=== PATIENT | male | born 1960 | race Caucasian/White ===

== ENCOUNTER → 2018-01-02 | Outpatient (CLI) | payer OTHER ==
[2018-01-02 11:39] LABS: HCT 48.6 % (39.0-53.0); HGB 16.5 gm/dL (13.0-17.5); MCH 31.5 pg (25.0-35.0); MCHC 33.9 g/dL (31.0-37.0); MCV 92.8 fL (80.0-100.0); Mean Platelet Volume 7.9; Platelet Count 179 k/uL (150-450); RBC 5.24 m/uL (4.30-5.90); RDW 12.3 % (11.5-15.5); WBC 6.4 k/uL (3.8-10.6)
[2018-01-02 12:07] LABS: Anion Gap 13 mmol/L; Blood Urea Nitrogen 8 mg/dL (9-20); Carbon Dioxide 29 mmol/L (22-30); Chloride 103 mmol/L (98-107); Potassium 4.7 mmol/L (3.5-5.1); Sodium 145 mmol/L (137-145)
== END | disposition home or self-care (01) ==
LOC: LABPAT 11:01
PROVIDERS: ATTEND Internal Medicine Interventional Cardiology
DX: Z01.812 Encounter for preprocedural laboratory examination (principal); R07.9 Chest pain, unspecified
CPT/HCPCS: 36415; 80051; 82565; 84520; 85027

== ENCOUNTER → 2018-01-06 | Day surgery (SDC) | payer OTHER ==
[2018-01-01 09:29] VITALS: BMI 25.7
[~2018-01-06] MED LIST: ALPRAZolam 0.25 MG TAB PO PRN; ALPRAZolam 0.5 MG TAB PO PRN; ASPIRIN 325 MG TAB PO STA; ASPIRIN 81 MG PO SCH; ATORVASTATIN 20 MG TAB PO SCH; ATORVASTATIN 80 MG TAB PO STA; HEPARIN SODIUM 1,000 UN/ML (10ML VL) ONE; IOPAMIDOL-370 125ML BTL INJ ONE; LIDOCAINE 2% INJ 20 MG/ML (20 ML MDV) ONE; LIDOCAINE 2% INJ 20 MG/ML SQ ONE; LISINOPRIL 20 MG TAB PO SCH; MIDAZOLAM 2 MG/2 ML VIAL IV ONE; MIDAZOLAM 2 MG/2 ML VIAL ONE; NITROGLYCERIN SL TABS 0.4 MG TAB SUBLINGUAL PRN; RX INFO: IV CONTRAST WAS GIVEN 1 EACH MISC MISCELLANE PRN; SODIUM CHLORIDE 0.9% 1,000 ML IV SCH; SODIUM CHLORIDE 0.9% 1,000 ML in EMPTY BAG 1 BAG IV ONE; VERAPAMIL 2.5 MG/ML 2 ML AMP ONE; diphenhydrAMINE 50 MG/ML 1 ML VIAL IVP ONE; diphenhydrAMINE 50 MG/ML 1 ML VIAL ONE; fentaNYL (PF) 50 MCG/ML 2 ML AMP IV ONE; fentaNYL (PF) 50 MCG/ML 2 ML AMP ONE
[2018-01-06 06:47] VITALS: TEMP 98
[2018-01-06] MEDS: VERAPAMIL SYRINGE (5 MG/10 ML) INTRAARTER ONE ×2 (07:47→07:56)
--- NOTE | 2018-01-06 08:38 | CC ---
CARDIAC CATHETERIZATION REPORT Mr. Strickland is a 57-year-old male with known history of hypertension, hyperlipidemia, history of smoking, who recently has been complaining of symptoms of dyspnea and episodes of chest discomfort, underwent a myocardial perfusion imaging that revealed apical ischemia. In view of that, recommendation was made regarding cardiac catheterization. The procedure as well as the risks and the complications were discussed with the patient who is in full understanding and agreement. PROCEDURE: Patient was brought to cath lab nurse in a fasting semi-sedated state after receiving fentanyl and Benadryl and achieving moderate conscious sedated state. Using Xylocaine anesthesia in the Seldinger technique, a 6-Rwandan sheath was introduced in the right radial artery. Selective right and left coronary angiography performed using 5-Rwandan 3.5 bend right and left Vitaly catheter. Multiple view of the coronary artery including hemiaxial views were obtained. Following that, catheter and sheaths were removed. Hemostasis was obtained with deployment of a TR band. There was no immediate complication. The patient was returned to his room in a stable condition. Of note, the patient had received 4500 units of intravenous heparin as well as intra-arterial verapamil. FINDINGS: LEFT MAIN: This is a large-sized vessel, bifurcating in the left circumflex, left anterior descending artery. Left main coronary artery is without any significant obstructive disease. LEFT ANTERIOR DESCENDING ARTERY: This is a large-sized vessel. It tapers down in distal third, giving rise to a moderately sized diagonal branch in mid segment. The left anterior descending artery and its branches have no evidence of obstructive coronary artery disease LEFT CIRCUMFLEX: This is a nondominant vessel giving rise to 2 obtuse marginal branches. The first one is very proximal almost in the ramus intermedius territory. The left circumflex as well as branches have no evidence of obstructive coronary artery disease. RIGHT CORONARY ARTERY: This is a large dominant vessel bifurcating in PDA and posterolateral segment and branches. The PDA reaches towards the inferoapical wall. The right coronary artery as well as branches have no evidence of obstructive coronary artery disease LEFT VENTRICULOGRAM: Left ventriculogram is not performed. FINDINGS: Normal coronary arteries. RECOMMENDATION: In view of finding anatomy, I recommend to continue medical therapy with aggressive coronary risk modification that has been initiated. Those findings and recommendations were discussed with the patient and his family and they are in full understanding and agreement. Duration of the procedure is 13 minutes. MMODL / IJN: [id number] /
--- NOTE | 2018-01-06 08:44 | LTR ---
January 06, 2018 Re: Lc Strickland Dear Dr. Gant: I had the opportunity to perform cardiac catheterization on Mr. Strickland at [facility] on the 06 of January and a full copy of the procedure note, will be forwarded to you. In brief, he was found to have no evidence of obstructive coronary artery disease and based on those findings, I recommend to continue medical therapy with aggressive coronary risk modification that has been initiated. Thank you again for allowing me the opportunity to participate in his care. Please feel free to call for any questions. Sincerely yours, Gina Brandt. MD [place] / [place]: [id number] /
[2018-01-06 10:12] VITALS: BP 138/80; PULSE 70; RESP 18
== END | disposition home or self-care (01) ==
LOC: CATHCVL 06:19
PROVIDERS: ATTEND Internal Medicine Interventional Cardiology
DX: R94.39 Abnormal result of other cardiovascular function study (principal); R07.89 Other chest pain; R06.00 Dyspnea, unspecified; I10 Essential (primary) hypertension; E78.2 Mixed hyperlipidemia; F17.290 Nicotine dependence, other tobacco product, uncomplicated; Z79.82 Long term (current) use of aspirin; Z79.899 Other long term (current) drug therapy
CPT/HCPCS: 93454; C1769 ×2; C1894; J2001; J2250; J1200; J3010; J1644; Q9967

== ENCOUNTER 2020-09-11 09:34 | Emergency (ER) | payer OTHER ==
[2020-09-11 09:40] VITALS: RESP 18; TEMP 98.8
[2020-09-11] MEDS ORDERED: hydrALAZINE HCL 20 MG/ML 1 ML VIAL IVP STA (09:49)
--- NOTE | 2020-09-11 09:51 | ED ---
General Adult HPI - General Chief complaint: Recheck/Abnormal Lab/Rx Stated complaint: High BP Time Seen by Provider: 09/11/20 09:35 Source: patient, family, RN notes reviewed, old records reviewed Mode of arrival: ambulatory Limitations: no limitations - History of Present Illness Initial comments: This is a 60-year-old male who presents to the emergency department because he went for a initial evaluation with the physician and his blood pressure was elevated so they sent to the emergency department. Patient's states she is a smoker and now only smokes a pipe. Patient states she used to be at high blood pressure medication but hasn't taken it in quite a while. Patient states he has had no symptoms at all. Patient denies chest pain or palpitations. Patient denies difficulty breathing shortness of breath. Patient denies headache patient denies numbness weakness. Patient denies abdominal pain patient denies nausea vomiting diarrhea. Patient denies any lightheadedness or dizziness. Patient denies blurred vision. - Related Data Home Medications Medication Instructions Recorded Confirmed Aspirin [Adult Low Dose Aspirin EC] 81 mg PO DAILY 01/01/18 09/11/20 Multivitamins, Thera [Multivitamin 1 tab PO DAILY 09/11/20 09/11/20 (formulary)] Omeprazole Magnesium [PriLOSEC OTC] 20 mg PO DAILY 09/11/20 09/11/20 Previous Rx's Medication Instructions Recorded amLODIPine [Norvasc] 5 mg PO DAILY #10 tab 09/11/20 Allergies Allergy/AdvReac Type Severity Reaction Status Date / Time No Known Allergies Allergy Verified 09/11/20 10:52 Review of Systems ROS Statement: Those systems with pertinent positive or pertinent negative responses have been documented in the HPI. ROS Other: All systems not noted in ROS Statement are negative. Past Medical History Past Medical History: Chest Pain / Angina, COPD, GERD/Reflux, Hyperlipidemia, Hypertension Additional Past Medical History / Comment(s): irregular heart rate, heart murmur History of Any Multi-Drug Resistant Organisms: None Reported Past Surgical History: Heart Catheterization, Orthopedic Surgery Additional Past Surgical History / Comment(s): harpreet knees ACL repair Past Anesthesia/Blood Transfusion Reactions: No Reported Reaction Past Psychological History: Anxiety Smoking Status: Current every day smoker Past Alcohol Use History: Occasional Past Drug Use History: None Reported - Past Family History Brother(s) Additional Family Medical History / Comment(s): 2 brothers with aortic aneurysm, 1 with brain cancer Mother Family Medical History: Cancer Additional Family Medical History / Comment(s): lung cancer General Exam - General Exam Comments Initial Comments: GENERAL: Patient is well-developed and well-nourished. Patient is nontoxic and well-hy drated and is in mild distress. ENT: Neck is soft and supple. No significant lymphadenopathy is noted. Oropharynx is clear. Moist mucous membranes. Neck has full range of motion without eliciting any pain. EYES: The sclera were anicteric and conjunctiva were pink and moist. Extraocular move ments were intact and pupils were equal round and reactive to light. Eyelids were unremarkable. PULMONARY: Unlabored respirations. Good breath sounds bilaterally. No audible rales rhonchi or wheezing was noted. CARDIOVASCULAR: There is a regular rate and rhythm without any murmurs gallops or rubs. ABDOMEN: Soft and nontender with normal bowel sounds. SKIN: Skin is clear with no lesions or rashes and otherwise unremarkable. NEUROLOGIC: Patient is alert and oriented x3. Cranial nerves II through XII are grossly intact. Motor and sensory are also intact. Normal speech, volume and content. Symmetrical smile. MUSCULOSKELETAL: Normal extremities with adequate strength and full range of motion. LYMPHATICS: No significant lymphadenopathy is noted PSYCHIATRIC: Normal psychiatric evaluation. Limitations: no limitations Course Vital Signs 09/11/20 09/11/20 09/11/20 09:36 10:31 11:00 Temperature 98.8 F Pulse Rate 94 107 H 105 H Respiratory 18 18 18 Rate Blood Pressure 201/102 190/97 169/82 O2 Sat by Pulse 99 100 100 Oximetry Medical Decision Making - Medical Decision Making EKG shows sinus tachycardia at 102 bpm MI interval is 126 QRS is 118 QT interval 372 QTC is 484. Patient's EKG shows no ST segment elevation or depression. Patient received hydralazine 20 mg blood pressure down nicely. Patient remained asymptomatic throughout his stay. - Lab Data Result diagrams: 09/11/20 10:10 09/11/20 10:10 Lab Results 09/11/20 09/11/20 Range/Units 10:10 10:10 WBC 7.1 (3.8-10.6) k/uL RBC 4.82 (4.30-5.90) m/uL Hgb 15.7 (13.0-17.5) gm/dL Hct 47.3 (39.0-53.0) % MCV 98.2 (80.0-100.0) fL MCH 32.5 (25.0-35.0) pg MCHC 33.1 (31.0-37.0) g/dL RDW 12.4 (11.5-15.5) % Plt Count 187 (150-450) k/uL MPV 7.6 Neutrophils % 62 % Lymphocytes % 27 % Monocytes % 5 % Eosinophils % 4 % Basophils % 1 % Neutrophils # 4.4 (1.3-7.7) k/uL Lymphocytes # 1.9 (1.0-4.8) k/uL Monocytes # 0.4 (0-1.0) k/uL Eosinophils # 0.3 (0-0.7) k/uL Basophils # 0.0 (0-0.2) k/uL Sodium 138 (137-145) mmol/L Potassium 4.7 (3.5-5.1) mmol/L Chloride 106 (98-107) mmol/L Carbon Dioxide 22 (22-30) mmol/L Anion Gap 10 mmol/L BUN 11 (9-20) mg/dL Creatinine 0.69 (0.66-1.25) mg/dL Est GFR (CKD-EPI)AfAm >90 (>60 ml/min/1.73 sqM) Est GFR (CKD-EPI)NonAf >90 (>60 ml/min/1.73 sqM) Glucose 118 H (74-99) mg/dL Calcium 9.8 (8.4-10.2) mg/dL Total Bilirubin 0.7 (0.2-1.3) mg/dL AST 60 H (17-59) U/L ALT 94 H (4-49) U/L Alkaline Phosphatase 89 (38-126) U/L Total Protein 9.0 H (6.3-8.2) g/dL Albumin 5.2 H (3.5-5.0) g/dL Disposition Clinical Impression: Hypertensive urgency Disposition: HOME SELF-CARE Condition: Good Instructions (If sedation given, give patient instructions): Hypertension (ED) Prescriptions: amLODIPine [Norvasc] 5 mg PO DAILY #10 tab Is patient prescribed a controlled substance at d/c from ED?: No Referrals: [facility],Clinic [Primary Care Provider] - 1-2 days Time of Disposition: 11:31
[2020-09-11 10:24] LABS: Basophils % (A) 1 %; Eosinophils # (A) 0.3 k/uL (0-0.7); Eosinophils % (A) 4 %; HCT 47.3 % (39.0-53.0); HGB 15.7 gm/dL (13.0-17.5); Lymphocytes # (A) 1.9 k/uL (1.0-4.8); Lymphocytes % (A) 27 %; MCH 32.5 pg (25.0-35.0); MCHC 33.1 g/dL (31.0-37.0); MCV 98.2 fL (80.0-100.0); Mean Platelet Volume 7.6; Monocytes # (A) 0.4 k/uL (0-1.0); Monocytes % (A) 5 %; Neutrophils # (A) 4.4 k/uL (1.3-7.7); Neutrophils % (A) 62 %; Platelet Count 187 k/uL (150-450); RBC 4.82 m/uL (4.30-5.90); RDW 12.4 % (11.5-15.5); WBC 7.1 k/uL (3.8-10.6)
[2020-09-11 10:32] LABS: ALT 94 U/L (4-49); African American GFR (CKD) >90 (>60 ml/min/1.73 sqM); Albumin 5.2 g/dL (3.5-5.0); Anion Gap 10 mmol/L; Blood Urea Nitrogen 11 mg/dL (9-20); Calcium 9.8 mg/dL (8.4-10.2); Carbon Dioxide 22 mmol/L (22-30); Chloride 106 mmol/L (98-107); Glucose 118 mg/dL (74-99); Non-African American GFR(CKD) >90 (>60 ml/min/1.73 sqM); Sodium 138 mmol/L (137-145); Total Bilirubin 0.7 mg/dL (0.2-1.3)
[2020-09-11 10:35] LABS: AST 60 U/L (17-59); Alkaline Phosphatase 89 U/L (38-126); Potassium 4.7 mmol/L (3.5-5.1)
[2020-09-11] MEDS ORDERED: LABETALOL 5 MG/ML VIAL MDV IVP STA (10:55)
[2020-09-11 13:04] VITALS: PULSE 98
[2020-09-11 13:06] VITALS: BP 158/84
== END 2020-09-11 13:10 | disposition home or self-care (01) ==
LOC: EC 09:34
DX: I16.0 Hypertensive urgency (principal); I20.9 Angina pectoris, unspecified; K21.9 Gastro-esophageal reflux disease without esophagitis; R00.0 Tachycardia, unspecified; F17.200 Nicotine dependence, unspecified, uncomplicated; Z79.899 Other long term (current) drug therapy; Z79.82 Long term (current) use of aspirin
CPT/HCPCS: 36415; 93005; 80053; 85025; 99284; 96374; 96375; J0360

== ENCOUNTER → 2022-07-11 | Outpatient (CLI) | payer OTHER ==
--- NOTE | 2022-07-11 13:09 | CTL ---
EXAMINATION TYPE: CT Low Dose Lung DATE OF EXAM ORDERED: 07/11/2022 HISTORY: Long-term tobacco use. Lung cancer screening CT DLP: [address] CTDI: 2.45 mGy Automated exposure control for dose reduction was used. SCREENING VISIT: Baseline COMPARISON: None TECHNIQUE: Low dose computed tomography scan was performed through the chest at 1 mm thick sections a nd reconstructed images in multiple planes at 10 mm and [address] DIAGNOSTIC QUALITY: Satisfactory FINDINGS: LUNG NODULES: Present, detailed below: Multiple scattered small bilateral nodules. The largest nodules measure 6.8 x 3.6 mm anterior peripheral lingula on axial image 204. No greater t newsome 6 mm pulmonary nodules clearly seen. LUNGS: COPD: Severity: Mild Fibrosis: Severity: Mild Lymph nodes: No greater than 1 cm Other findings: None RIGHT PLEURAL SPACE: Effusion: None Calcification: None Thickening: None Pneumothorax: None LEFT PLEURAL SPACE: Effusion: None Calcification: None Thickening: None Pneumothorax: None HEART: Heart Size: Normal Coronary Calcification: Mild to moderate Pericardial Effusion: None OTHER FINDINGS: Upper abdomen: None Bony thorax: Mild to moderate multilevel spurring Supraclavicular region: None Other: None IMPRESSION: Multiple small scattered nodules. No greater than 6 mm mean axis pulmonary nodules. CT LUNG RAD AND CT CHEST RECOMMENDATION: Lung-Rad 2 Benign Appearance or Behavior: Continue annual sc reening with LDCT in 12 months. S Modifier (other clinically significant findings): None
== END | disposition home or self-care (01) ==
LOC: RADCTMAIN 12:32
PROVIDERS: ATTEND Physician Assistant
DX: Z12.2 Encounter for screening for malignant neoplasm of respiratory organs (principal); R91.8 Other nonspecific abnormal finding of lung field; Z87.891 Personal history of nicotine dependence
CPT/HCPCS: 71271

== ENCOUNTER → 2023-07-16 | Outpatient (CLI) | payer OTHER ==
--- NOTE | 2023-07-16 19:14 | CTL ---
EXAMINATION TYPE: CT Low Dose Lung DATE OF EXAM ORDERED: 07/16/2023 HISTORY: 63-year-old male. Z87.891 PERSONAL HISTORY OF NICOTINE DEPENDENCE. Current smoker with 70 pa ck-year history. Lung cancer screening CT DLP: 77.[address] CTDI: 2.1 mGy Automated exposure control for dose reduction was used. SCREENING VISIT: Annual follow-up COMPARISON: 07/11/2022 TECHNIQUE: Low dose computed tomography scan was performed through the chest with coronal and sagitta l reconstructions. CT DIAGNOSTIC QUALITY: Satisfactory FINDINGS: Heart normal size without pericardial effusion. LAD and RCA coronary artery calcifications are presen t. Ectatic ascending aorta at 3.7 cm. Conventional arch vessel branching anatomy. Borderline ectatic upp er descending thoracic aorta 3.2 cm. No thoracic lymphadenopathy by CT size criteria. Mild interstitial changes, mild emphysematous change, mild diffuse bronchial wall thickening, and sca ttered strandy scarring all remain unchanged. 6 mm left upper lobe pulmonary nodule, axial image 40 is unchanged. A couple additional small 4 mm pulmonary nodules are also unchanged. Visualized upper abdomen shows no gross abnormality. Bones: DISH in the lower thoracic spine. IMPRESSION: 1. LungRADS 2, benign. A few pulmonary nodules measuring up to 6 mm remain unchanged. 2. COPD with mild to moderate emphysema. Recommend smoking cessation. CT LUNG RAD AND CT CHEST RECOMMENDATION: Lung-Rad 2 Benign Appearance or Behavior: Continue annual sc reening with LDCT in 12 months. S Modifier (other clinically significant findings): None
== END ==
LOC: RADCTMAIN 12:25
DX: Z12.2 Encounter for screening for malignant neoplasm of respiratory organs (principal); J43.9 Emphysema, unspecified; R91.8 Other nonspecific abnormal finding of lung field; F17.210 Nicotine dependence, cigarettes, uncomplicated
CPT/HCPCS: 71271

== ENCOUNTER 2023-08-06 09:22 | Day surgery (SDC) | payer OTHER ==
--- NOTE | 2023-08-05 13:17 | P.HPOR ---
History of Present Illness H&P Date: 08/05/23 Subjective: This is a 63 year old male that presents today for initial evaluation regarding a several year history of a bilateral hand Dupuytrens disease with the right ring finger being most symptomatic. He has been unable to straighten the finger or and has difficulty reach into a pocket, and is unable to wear gloves because of the contracture. There is minimal pain. He states his left ring finger is also contracted but not as severe as the right side. He is left hand dominant. Physical Examination: LUE: AIN/PIN/Radial/Ulnar/Median motor intact. Radial/Ulnar/Median SILT. 2+/4 Radial/Ulnar pulses palpated. 5/5 APB, 5/5 FDI. Negative Finkelsteins, negative CMC grind, negative Durkan's compression. Left ring finger palpable Dupuytrens chord, 30 degree flexion contracture at MCP joint RUE: AIN/PIN/Radial/Ulnar/Median motor intact. Radial/Ulnar/Median SILT. 2+/4 Radial/Ulnar pulses palpated. 5/5 APB, 5/5 FDI. Negative Finkelsteins, negative CMC grind, negative Durkan's compression. Right ring finger palpable Dupuytrens chord, 45 degree flexion contracture at MCP and PIP joints. Not able to put hand flat on table. Imaging: X-Rays of the left hand 3V taken in office today demonstrate no acute fracture/dislocation. X-Rays of the right hand 3V taken in office today demonstrate no acute fracture/dislocation. Impression: 1.) Right ring finger Dupuytrens contracture 2.) Left ring finger Dupuytrens contracture Plan: Diagnosis and treatment options were discussed with the patient. He states his right ring finger is effecting is daily activities and is constantly in the way and would like to go forward with right hand Dupuytrens palmar fasciectomy. Risks and benefits of surgery including bleeding, infection, damage to surround ing tissue, need for further surgery, residual numbness were discussed and the patient wished to go forward with surgery. The patient was agreeable with this plan. CC: [facility] Ilya Hou DO Orthopedic Hand/Upper Extremity Surgeon Past Medical History Past Medical History: COPD, GERD/Reflux, Hyperlipidemia, Hypertension, Osteoarthritis (OA), Thyroid Disorder Additional Past Medical History / Comment(s): hx. heart murmur, aortic aneurysm- just found, discovered on CT, card. Dr Chavez to monitor, has upcoming appt., current torn left rotator cuff History of Any Multi-Drug Resistant Organisms: None Reported Past Surgical History: Heart Catheterization, Orthopedic Surgery Additional Past Surgical History / Comment(s): harpreet knees ACL repair Past Anesthesia/Blood Transfusion Reactions: No Reported Reaction Smoking Status: Former smoker - Past Family History Brother(s) Additional Family Medical History / Comment(s): 2 brothers with aortic aneurysm, 1 with brain cancer Mother Family Medical History: Cancer Additional Family Medical History / Comment(s): lung cancer Medications and Allergies Home Medications Medication Instructions Recorded Confirmed Type Aspirin [Adult Low Dose Aspirin EC] 81 mg PO DAILY 01/01/18 08/04/23 History Multivitamins, Thera [Multivitamin 1 tab PO DAILY 09/11/20 08/04/23 History (formulary)] Omeprazole Magnesium [PriLOSEC OTC] 20 mg PO DAILY 09/11/20 08/04/23 History Albuterol Inhaler [Ventolin Hfa 1 - 2 puff INHALATION Q6H PRN 08/04/23 08/04/23 History Inhaler] Atorvastatin [Lipitor] 80 mg PO DAILY 08/04/23 08/04/23 History Ibuprofen [Motrin] 800 mg PO Q6H PRN 08/04/23 08/04/23 History Levothyroxine Sodium [Synthroid] 25 mcg PO DAILY 08/04/23 08/04/23 History Losartan Potassium [Cozaar] 100 mg PO DAILY 08/04/23 08/04/23 History Tiotropium 18 Mcg/Puff [Spiriva] 1 puff INHALATION BID 08/04/23 08/04/23 History amLODIPine [Norvasc] 10 mg PO DAILY 08/04/23 08/04/23 History carvediloL [Coreg] 3.125 mg PO DAILY 08/04/23 08/04/23 History hydroCHLOROthiazide [Hydrodiuril] 25 mg PO DAILY 08/04/23 08/04/23 History Allergies Allergy/AdvReac Type Severity Reaction Status Date / Time No Known Allergies Allergy Verified 08/04/23 11:45 Physical Examination Osteopathic Statement: *. No significant issues noted on an osteopathic structural exam other than those noted in the History and Physical/Consult.
[~2023-08-06 09:22] MED LIST changes: -ALPRAZolam 0.25 MG TAB PO PRN; -ALPRAZolam 0.5 MG TAB PO PRN; -ASPIRIN 325 MG TAB PO STA; -ASPIRIN 81 MG PO SCH; -ATORVASTATIN 20 MG TAB PO SCH; -ATORVASTATIN 80 MG TAB PO STA; +DEXAMETHASONE SOD PHOSPHATE 4 MG/ML 1 ML VIAL IV ONE; -HEPARIN SODIUM 1,000 UN/ML (10ML VL) ONE; +HYDROmorphone 0.5 MG/0.5 ML SYRINGE IVP PRN; -IOPAMIDOL-370 125ML BTL INJ ONE; +LACTATED RINGERS 1,000 ML IV SCH; +LIDOCAINE 1% (10MG/ML) FOR IV START INTRADERMA PRN; -LIDOCAINE 2% INJ 20 MG/ML (20 ML MDV) ONE; -LIDOCAINE 2% INJ 20 MG/ML SQ ONE; -LISINOPRIL 20 MG TAB PO SCH; -MIDAZOLAM 2 MG/2 ML VIAL IV ONE; -MIDAZOLAM 2 MG/2 ML VIAL ONE; -NITROGLYCERIN SL TABS 0.4 MG TAB SUBLINGUAL PRN; +ONDANSETRON 4 MG/2 ML VIAL IVP ONE; +Pre Op ABX Message 1 EACH MISC MISCELLANE ONE; -RX INFO: IV CONTRAST WAS GIVEN 1 EACH MISC MISCELLANE PRN; -SODIUM CHLORIDE 0.9% 1,000 ML IV SCH; -SODIUM CHLORIDE 0.9% 1,000 ML in EMPTY BAG 1 BAG IV ONE; -VERAPAMIL 2.5 MG/ML 2 ML AMP ONE; -diphenhydrAMINE 50 MG/ML 1 ML VIAL IVP ONE; -diphenhydrAMINE 50 MG/ML 1 ML VIAL ONE; -fentaNYL (PF) 50 MCG/ML 2 ML AMP IV ONE; -fentaNYL (PF) 50 MCG/ML 2 ML AMP ONE
[2023-08-06] MEDS ORDERED: HYDROmorphone (PF) 1 MG/ML ONE (10:48)
[2023-08-06] MEDS ORDERED: fentaNYL (PF) 50 MCG/ML 2 ML AMP ONE (10:48)
[2023-08-06] MEDS ORDERED: MIDAZOLAM 2 MG/2 ML VIAL ONE (10:48)
[2023-08-06] MEDS ORDERED: PROPOFOL 10 MG/ML 20 ML VIAL IV ONE (10:48)
[2023-08-06] MEDS ORDERED: LIDOCAINE 1% INJ 10MG/ML (20 ML MDV) ONE (10:48)
[2023-08-06] MEDS ORDERED: KETAMINE HCL IN 0.9 % NACL 50 MG/5 ML SYRINGE ONE (10:48)
[2023-08-06] MEDS ORDERED: BACITRACIN ZINC 500 UNIT/GM OINT 28.4 GM TUBE TOPICAL ONE (12:16)
[2023-08-06] MEDS ORDERED: LIDOCAINE 2% INJ 20 MG/ML SQ ONE (12:18)
[2023-08-06] MEDS ORDERED: BUPIVACAINE (PF) 0.5% 30 ML VIAL SQ ONE (12:19)
[2023-08-06 12:59] VITALS: TEMP 97
--- NOTE | 2023-08-06 13:16 | P.OP ---
Date of Procedure: 08/06/23 Preoperative Diagnosis: Right ring finger Dupuytrens contracture Postoperative Diagnosis: Right ring finger Dupuytrens contracture Procedure(s) Performed: Right ring finger Dupuytrens palmar fasciectomy Anesthesia: PERLA Surgeon: Gallo Hou Project Technician #1: Mt Workman Estimated Blood Loss (ml): 0 Pathology: none sent Condition: stable Description of Procedure: This is a 63 year old male who presents today for surgical intervention for a right ring finger Dupuytren's contracture that has failed conservative treatment. Risks and benefits of surgery were discussed with the patient including bleeding, damage to surrounding tissue, infection, recurrence, need for further surgery as well as risks of anesthesia including pulmonary embolism and even and the patient wished to proceed with surgical intervention. The patient was seen in the pre-operative area by myself. Consent and H&P were completed and updated. The correct extremity was marked in the pre-operative area by myself and all other questions were answered. Operative Narrative: The patient was brought to the operating room by the department of anesthesia. They remained on the portable stretcher and a rolling hand table was brought to the side of the operative extremity. Pre-operative time out was perf ormed indicating the correct patient, procedure and laterality. All in the room agreed. Pre-operative antibiotics were given prior to skin incision. The patient was then drifted off to sleep by the department of anesthesia. A nonsterile tourniquet was then applied to the operative extremity and the right upper extremity was then prepped and draped in normal sterile fashion. The operative extremity was the exsanguinated with an esmarch bandage and the tourniquet was inflated to 250mmHg. 15 blade scalpel was then used to make an incision in a Sofia type fashion on the volar surface of the right ring finger Dupuytren's cord from the level of the mid palm to the level of the PIP joint crease. Blunt dissection was taken down to reveal the thickened Dupuytrens chord originating from the palmar fascia. Neurovascular bundles were identified and protected and blunt tenotomy scissors and combination of 15 blade scalpel were used to separate the pathologic fascial tissues from surrounding structures. The ulnar digital nerve was found to have spiraled 360 degrees around the chord, this was carefully dissected and the the spiral chord was excised leaving the nerve intact. The thick fascial tissue was dissected out from deep and superficial tissues and released from its proximal attachment to the palmar fascia and then released in a proximal to distal fashion. After excision at the distal portion attachment at the level of the PIP joint crease the finger was able to be fully extended. The wound was then irrigated and skin closure was performed with 4-0 nylon sutures. 10cc's total of 0.5% bupivicaine was injected to perform digital blocks of the ring finger. Large bulky soft dressing with fluffs, adaptic, bacitracin, cast padding and donna wrap was applied. Tourniquet was let down and all digits had immediate perfusion. The patient was then woken by the department of anesthesia and transferred to PACU in stable condition. Mt GAONA was present for the case in its entirety to assist in fatima portions of the case and protection of vital neurovascular structures. Gallo Hou D.O. Orthopedic Hand/Upper Extremity Surgeon
[2023-08-06 14:26] VITALS: BP 155/89; PULSE 79; RESP 20
== END 2023-08-06 14:00 | disposition home or self-care (01) ==
LOC: OR 09:22
PROVIDERS: ATTEND Orthopaedic Surgery Hand Surgery
DX: M72.0 Palmar fascial fibromatosis [Dupuytren] (principal); M19.90 Unspecified osteoarthritis, unspecified site; I10 Essential (primary) hypertension; E78.5 Hyperlipidemia, unspecified; E03.9 Hypothyroidism, unspecified; K21.9 Gastro-esophageal reflux disease without esophagitis; J44.9 Chronic obstructive pulmonary disease, unspecified; F17.200 Nicotine dependence, unspecified, uncomplicated; Z98.890 Other specified postprocedural states; Z79.82 Long term (current) use of aspirin; Z79.83 Long term (current) use of bisphosphonates; Z79.51 Long term (current) use of inhaled steroids; Z79.890 Hormone replacement therapy; Z79.899 Other long term (current) drug therapy
CPT/HCPCS: 26121; J2001 ×2; J2250; J1100; J2405; J3010; J1170; J2704; J0665

== ENCOUNTER → 2023-09-16 | Outpatient (CLI) | payer OTHER ==
--- NOTE | 2023-09-16 12:38 | CT ---
EXAMINATION TYPE: CT angio tho/abd W Run Off DATE OF EXAM: 09/16/2023 COMPARISON: NONE HISTORY: 63-year-old male Ascending and descending aortic aneurysm, family hx of dissection. TECHNIQUE: Contiguous axial scanning of the chest, abdomen, and pelvis following administration of 10 0 ml Isovue-370 IV contrast. Scanning was continued bilateral lower survey runoff. Coronal/sagittal reconstructions performed. 3-D reconstructions generated on a dedicated independent workstation. CT DLP: 2153 mGycm Automated exposure control for dose reduction was used. FINDINGS: CHEST: The heart is normal size without pericardial effusion. Moderate proximal LAD coronary calcifications. Mild aortic valvular calcifications. No thoracic lymphadenopathy by CT size criteria. Mild diffuse bronchial wall thickening. Mild groundg lass or tree-in-bud within the posterior mid lungs. Mild emphysematous change. Some scattered linear scarring or atelectasis in the anterior left upper lobe. No qian consolidation or pleural effusion. ABDOMEN: Tiny hiatal hernia. There may be some underlying mild fatty infiltration of the liver. Gallbladder, adrenal glands, right kidney, spleen, and pancreas show no gross abnormality. 2 cm cortical cyst lateral left kidney. No dilated small bowel, free fluid, or free air. No mesenteric or retroperitoneal lymphadenopathy. Normal appendix. Scattered mild stool. Redundant distal sigmoid colon. No pericolonic inflammatory ch bola. Sigmoid diverticulosis. PELVIS: Moderate circumferential bladder wall thickening. Prostatomegaly 4.9 cm wide. No abnormal fluid colle ction of the pelvis or pelvic lymphadenopathy. There may be a small to moderate sized left scrotal hy drocele. BONES: Severe degenerative change right hip. Moderate to severe the left hip. Moderate spondylotic change th roughout the mid to lower thoracic and lower lumbar spine. Severe degenerative change left knee with moderate to large joint effusion and moderate chronic synovitis. Scattered loose bodies. Loose bodies are also present within the moderate sized Gallardo's cyst on the left. VASCULATURE: Borderline ectatic ascending aorta 3.5 cm. Conventional arch vessel branching anatomy. Minimal atherosclerotic arch calcifications. Borderline ectatic upper descending thoracic aorta 3.0 cm. Distal descending thoracic aorta measures 2.4 cm. Celiac axis and SMA are patent. Diallo bilateral renal arteries. Mild atherosclerotic plaque and calcification within the infrarenal abdominal aorta. Borderline ectasia infrarenal abdominal aorta to 2.6 cm. Mild atherosclerotic changes continue within the common and internal iliac arteries. Right: Scattered mild atherosclerotic changes are present throughout the right lower extremity. Mild atherosclerotic changes throughout the [employer]. Mild to moderate stenosis at the origin of the PFA. Mild stenosis proximal SFA and also distally at the adductor hiatus. Mild atherosclerotic calcifications throughout the popliteal artery. The degree of enhancement below the knees and is very limited. Neither the anterior tibial artery or peroneal artery are clearly seen at the distal third leg level. There appears to be runoff via a diminutive posterior tibial artery. Left: Mild aneurysm left common iliac artery at 2.2 cm. Mild atherosclerotic change within the [employer] and also at the origin of the PFA. Mild to moderate stenosis proximal SFA. Moderate focal stenosis of the SFA at the adductor hiatus distally. Mild atherosclerotic calcifications throughout the popliteal artery without significant narrowing. The degree of enhancement below the knees and is very limited. Neither the anterior tibial artery or peroneal artery are seen below the distal third leg. There appears to be runoff via a diminutive posterior tibial artery. IMPRESSION: 1. BORDERLINE ECTATIC THORACIC AORTA MEASURING UP TO 3.5 CM. NO THORACIC AORTIC ANEURYSM IS SEEN. 2. BORDERLINE ECTASIA INFRARENAL ABDOMINAL AORTA 2.6 CM. LEFT: 3. THERE IS AN ANEURYSM OF THE LEFT COMMON ILIAC ARTERY AT 2.2 CM. 4. SCATTERED MILD TO MODERATE ATHEROSCLEROTIC CHANGES THROUGHOUT THE LEFT LOWER EXTREMITY. 5. THERE IS A [id number] FOCAL STENOSIS PROXIMAL SFA AND MODERATE AT THE DISTAL SFA. 6. THE DEGREE OF ENHANCEMENT BELOW THE KNEES IS VERY LIMITED. NEAR THE ANTERIOR TIBIAL ARTERY OR CRYSTAL NICKY ARTERY ARE SEEN BELOW THE DISTAL THIRD LEG. 7. RUNOFF VIA A DIMINUTIVE POSTERIOR TIBIAL ARTERY. RIGHT: 8. SCATTERED MILD TO MODERATE ATHEROSCLEROTIC CHANGES THROUGHOUT THE RIGHT LOWER EXTREMITY. 9. MODERATE STENOSIS ORIGIN OF THE PFA. 10. MILD STENOSIS DISTAL SFA. 11. DEGREE OF ENHANCEMENT BELOW THE KNEES IS VERY LIMITED. ON THE LEFT SIDE, NEITHER THE ANTERIOR TIBIAL ARTERY OR PERONEAL ARTERY ARE SEEN BELOW THE DISTAL THIRD LEG. 12. RUNOFF VIA A DIMINUTIVE POSTERIOR TIBIAL ARTERY. Additional incidental findings as above.
== END | disposition home or self-care (01) ==
LOC: RADCTMAIN 11:09
DX: I71.21 Aneurysm of the ascending aorta, without rupture (principal); I71.23 Aneurysm of the descending thoracic aorta, without rupture; I72.3 Aneurysm of iliac artery; I70.203 Unspecified atherosclerosis of native arteries of extremities, bilateral legs
CPT/HCPCS: 75635; 71275; Q9967

== ENCOUNTER → 2023-12-31 | Outpatient (CLI) | payer OTHER | END | disposition home or self-care (01) | LOC: LABPAT 12:25 | PROVIDERS: ATTEND Orthopaedic Surgery | DX: Z01.812 Encounter for preprocedural laboratory examination (principal); M16.11 Unilateral primary osteoarthritis, right hip; Z22.322 Carrier or suspected carrier of Methicillin resistant Staphylococcus aureus | CPT/HCPCS: 87070 ==

== ENCOUNTER → 2024-02-21 | Outpatient (CLI) | payer OTHER | END | disposition home or self-care (01) | LOC: LABWHC1 10:57 | PROVIDERS: ATTEND Orthopaedic Surgery | DX: Z01.812 Encounter for preprocedural laboratory examination (principal); M16.11 Unilateral primary osteoarthritis, right hip | CPT/HCPCS: 86850; 86900; 86901 ==

== ENCOUNTER 2024-02-24 11:49 | Day surgery (SDC) | payer OTHER ==
--- NOTE | 2024-02-23 09:07 | P.HPOR ---
History of Present Illness H&P Date: 02/23/24 Chief Complaint: Right hip pain Patient is a 63-year-old male who presents with progressive right hip pain for the past year worsening recently. He notes anterior groin and thigh pain with weightbearing activities. He also notes stiffness. He notes he's been limping and using a cane. He tried medications without much relief. He is having night symptoms. Review of Systems Per HPI Past Medical History Past Medical History: Chest Pain / Angina, COPD, GERD/Reflux, Hyperlipidemia, Hypertension, Osteoarthritis (OA) Additional Past Medical History / Comment(s): irregular heart rate, heart murmur, hx. aortic aneurysm, no recent or current chest pain, left shoulder-hurt few weeks ago History of Any Multi-Drug Resistant Organisms: None Reported Past Surgical History: Heart Catheterization, Orthopedic Surgery Additional Past Surgical History / Comment(s): harpreet knees ACL repair Past Anesthesia/Blood Transfusion Reactions: No Reported Reaction Past Psychological History: Anxiety Smoking Status: Former smoker Past Alcohol Use History: Occasional Additional Past Alcohol Use History / Comment(s): smoked 30 years 2 ppd quit for 10 years and in 2015 began smoking pipe, quit smoking December 2023 Past Drug Use History: None Reported - Past Family History Brother(s) Additional Family Medical History / Comment(s): 2 brothers with aortic aneurysm, 1 with brain cancer Mother Family Medical History: Cancer Additional Family Medical History / Comment(s): lung cancer Medications and Allergies Home Medications Medication Instructions Recorded Confirmed Type Aspirin [Adult Low Dose Aspirin EC] 81 mg PO DAILY 01/01/18 02/19/24 History Multivitamins, Thera [Multivitamin 1 tab PO DAILY 09/11/20 02/19/24 History (formulary)] Omeprazole Magnesium [PriLOSEC OTC] 20 mg PO DAILY 09/11/20 02/19/24 History Albuterol Inhaler [Ventolin Hfa 1 - 2 puff INHALATION Q6H PRN 08/04/23 02/19/24 History Inhaler] Atorvastatin [Lipitor] 80 mg PO DAILY 08/04/23 02/19/24 History Ibuprofen [Motrin] 800 mg PO Q6H PRN 08/04/23 02/19/24 History Levothyroxine Sodium [Synthroid] 25 mcg PO DAILY 08/04/23 02/19/24 History Losartan Potassium [Cozaar] 100 mg PO DAILY 08/04/23 02/19/24 History Tiotropium 18 Mcg/Puff [Spiriva] 1 puff INHALATION BID 08/04/23 02/19/24 History amLODIPine [Norvasc] 10 mg PO DAILY 08/04/23 02/19/24 History carvediloL [Coreg] 3.125 mg PO BID 08/04/23 02/19/24 History Allergies Allergy/AdvReac Type Severity Reaction Status Date / Time No Known Allergies Allergy Verified 02/19/24 13:30 Physical Examination - Hip right Gait: antalgic Tenderness with palpation: anterior Pain with motion: internal rotation and hip flexion ROM: flexion: 60 degrees ROM: internal rotation: 0 degrees (With pain) ROM: external rotation: 50 degrees Strength: extension: 5/5 Strength: flexion: 5/5 Strength: abduction: 5/5 Tests: impingement tests: positive Results The patient is a well-developed well-nourished male approximately 6 foot tall, 180 pounds of mesomorphic habitus. HEENT exam is nonfocal, neck is supple. He has painful passive motion of his right hip. Clinically he has shortening of the right lower extremity compared to left. His distal neurovascular exam appears intact in the right lower extremity. - Diagnostic results Hip x-ray: image reviewed (2 views of the right hip obtained in the office show severe osteoarthrosis with [id number] changes and subchondral sclerosis.) Assessment and Plan Assessment: Right hip severe osteoarthrosis Plan: I talked to the patient at length regarding his condition along with treatment options. At this point is having significant pain and stiffness related to his right hip osteoarthrosis despite previous conservative measures. After a thorough discussion he opts to proceed with surgery. We will plan to proceed with right total hip arthroplasty utilizing an anterior approach. Risks and benefits were discussed at length in layman's terms. We will institute DVT prophylaxis postoperatively.
[~2024-02-24 11:49] MED LIST changes: -DEXAMETHASONE SOD PHOSPHATE 4 MG/ML 1 ML VIAL IV ONE; -LACTATED RINGERS 1,000 ML IV SCH; +MIDAZOLAM 2 MG/2 ML VIAL IV PRN; -ONDANSETRON 4 MG/2 ML VIAL IVP ONE; -Pre Op ABX Message 1 EACH MISC MISCELLANE ONE; +TRANEXAMIC 1,000 MG/100ML-NACL 1,000 MG in SALINE 1 100ML.BAG IVPB PRN
[2024-02-24] MEDS: LACTATED RINGERS 1,000 ML IV SCH (12:08)
[2024-02-24] MEDS: ACETAMINOPHEN TAB 500 MG TAB PO PRN (12:54)
[2024-02-24] MEDS: MELOXICAM 7.5 MG TAB PO PRN (12:54)
[2024-02-24] MEDS: ONDANSETRON 4 MG/2 ML VIAL IVP ONE (12:56)
[2024-02-24] MEDS: DEXAMETHASONE SOD PHOSPHATE 4 MG/ML 1 ML VIAL IV ONE (12:56)
[2024-02-24] MEDS: MIDAZOLAM 2 MG/2 ML VIAL IVP ONE (13:15)
[2024-02-24] MEDS ORDERED: TRANEXAMIC 1,000 MG/100ML-NACL PREMIX BAG ONE (13:40)
[2024-02-24] MEDS ORDERED: MIDAZOLAM 2 MG/2 ML VIAL ONE (13:40)
[2024-02-24] MEDS ORDERED: KETAMINE HCL IN 0.9 % NACL 50 MG/5 ML SYRINGE ONE (13:40)
[2024-02-24] MEDS ORDERED: PROPOFOL 10 MG/ML 20 ML VIAL IV ONE (13:40)
[2024-02-24] MEDS ORDERED: DEXAMETHASONE SOD PHOSPHATE 4 MG/ML 1 ML VIAL ONE (13:40)
[2024-02-24] MEDS ORDERED: ROPIVACAINE 5 MG/ML 30 ML VIAL ONE (13:40)
[2024-02-24] MEDS ORDERED: HYDROmorphone (PF) 1 MG/ML ONE (13:40)
[2024-02-24] MEDS ORDERED: fentaNYL (PF) 50 MCG/ML 2 ML AMP ONE (13:40)
[2024-02-24] MEDS: ceFAZolin 1,000 MG in SODIUM CHLORIDE 0.9% 1,000 ML IRRIGATION ONE (14:21)
[2024-02-24] MEDS ORDERED: HYDROmorphone 0.5 MG/0.5 ML SYRINGE IVP PRN (15:59)
[2024-02-24] MEDS ORDERED: MAGNESIUM HYDROXIDE 2,400 MG/30 ML CUP PO PRN (15:59)
[2024-02-24] MEDS ORDERED: HYDROcodone/APAP 5-325MG 1 EACH TAB PO PRN (15:59)
[2024-02-24] MEDS ORDERED: NALOXONE 0.4 MG/ML 1 ML VIAL IV PRN (15:59)
--- NOTE | 2024-02-24 16:12 | P.OP ---
Date of Procedure: 02/24/24 Preoperative Diagnosis: Right hip severe osteoarthrosis Postoperative Diagnosis: Same Procedure(s) Performed: Right total hip arthroplastypress-fitanterior approach Implants: [employer] size 1/standard press-fit collared femoral stem, 36+0 zirconium femoral head, 58 mm acetabular shell with neutral polyethylene liner. I utilized one 6.5 x 30 mm cancellous screw. Anesthesia: spinal Surgeon: José Rodriguez [employer] Manager #1: Mt Workman Estimated Blood Loss (ml): 150 Pathology: none sent Condition: stable Disposition: PACU Indications for Procedure: The patient is a 63-year-old male who presents with progressive right hip pain secondary to osteoarthrosis despite conservative measures. A discussion of the risks and benefits of operative intervention versus continued conservative measures was made with the patient. He opted to proceed with surgery. Operative risks include infection, neurovascular injury, fracture, leg length discrepancy, possible instability, possible component loosening/failure and possible need for subsequent procedures was discussed. Informed consent was obtained. Operative Findings: As below Description of Procedure: The patient was brought to the operating room, and after induction of spinal anesthesia was placed supine on the Shirley table. Positioning was checked with fluoroscopy. The right hip was then prepped and draped in a normal fashion. A 12 cm incision was then made starting 2 fingerbreadths distal and 3 finger breaths posterior to the ASIS in line with the proximal femur. The skin was incised sharply. Subcutaneous tissues were divided sharply. Electrocautery was used for hemostasis. The fascia was split in line with skin incision. The interval between the sartorius and tensor fascia simi was then bluntly developed. The posterior fascia was opened with electrocautery. The lateral circumflex vessels were identified and cauterized prior to sectioning. A retractor was placed along the superior femoral neck as well as the anterior acetabular rim. A wide capsulotomy was performed. The neck cut was then made at a 45 angle to the shaft approximately 1 1/2 cm above the level of the lesser trochanter. The head was extracted. Attention was then paid towards preparing the acetabular. Anterior and posterior retractors were placed. The remaining capsular labral tissue sharply debrided clearly defining the acetabular margins. I began reaming with a 51 mm reamer taking care to initially medialize then reaming at 45 of abduction and 20 of anteversion. Sequential reaming is performed up to 57 mm. A trial 58 mm acetabular shell was inserted in the same orientation and was fully seated. There was good rim fit and stability. Positioning was checked with fluoroscopy. The final 58 mm a cetabular shell was inserted again at 45 of abduction and 20 of anteversion. This was fully seated. There was good rim fit and stability. I did place a posterior superior 6.5 x 30 mm cancellous screw with good purchase. Again fluoroscopy was used to check the adequacy of placement. A neutral polyethylene liner was gently impacted. Care was taken to avoid any soft tissue interposition. Pulsatile lavage was utilized. Attention was then paid towards preparing the proximal femur. The central region was cleared of soft tissue. A canal finder was used to find the femoral canal. Sequential broaching was performed up to size 1 taking care to lateralize proximally. A calcar mill was used to fashion the medial calcar. There was good rotational stability. A standard neck along with a 36 mm +0 head was placed. The hip was gently reduced. Fluoroscopy was used to check the adequacy of positioning along with leg lengths. I felt both were good. The hip was gently dislocated. The trial components were removed. The final size 1 plus collared standard press-fit femoral stem was inserted parallel to the posterior cortex. This was fully seated and there was good rotational stability. A 36 mm +0 head was placed. This was gently impacted. The hip was then gently reduced. Final fluoroscopic view showed adequate placement implant along with pentecostal of leg length. Stability was checked with 80 of external rotation and 60 of extension of the right hip. The wound was irrigated with sterile lavage. The fascia was closed with running 0 Vicryl suture. There was minimal drainage therefore a deep drain was not placed. The second dose of IV TXA was given. The subcutaneous tissues were reapproximated interrupted 2-0 Vicryl sutures. The skin was reapproximated with 3-0 subcuticular strata fix suture. Skin tape and adhesive was applied. A sterile dressing was applied. The patient was then awoken from sedation and transferred to recovery room in good condition. Blood loss was estimated at 150 mL. No complications were incurred. Sponge and needle counts were correct at the end of the case. Mt GAONA assisted during the major components is case to include exposure, bone resection, implantation, and closure.
--- NOTE | 2024-02-24 17:06 | XR ---
EXAMINATION TYPE: XR Hip Limited RT DATE OF EXAM: 02/24/2024 5:02 PM CLINICAL INDICATION:Male, 63 years old with history of Status post hip surgery, assess surgical align ment; PHH COMPARISON: Fluoroscopy earlier today, and older studies TECHNIQUE AND FINDINGS: Single frontal view of the right hip. A total hip arthroplasty is in place, appears intact and normal ly aligned. No abnormal perihardware lucency or fracture. No significant malalignment. Soft tissues s how no unexpected radiopaque foreign body. Some regional soft tissue gas is present, not unexpected p ostoperative. IMPRESSION: Status post placement of total hip arthroplasty. No evidence of complication.
[2024-02-24] MEDS: HYDROcodone/APAP 7.5-325MG 1 EACH TAB PO PRN (17:56)
--- NOTE | 2024-02-24 17:57 | FL ---
EXAMINATION TYPE: FL guidance operating room, XR Hip Limited RT Intraoperative/procedural fluoroscopi c services were provided. Total fluoroscopy time is 20 seconds with a total of 4 submitted images to PACS. Please see the operative/procedural note for further details. DAP: 0.6849 mGym2 Gycm2 uGym2 cGycm2 Gastric sleeve
[2024-02-24] MEDS: hydrOXYzine pamoate 25 MG CAP PO PRN (21:16)
[2024-02-24] MEDS: SENNOSIDES-DOCUSATE SODIUM 1 EACH TAB PO SCH (21:16)
--- NOTE | 2024-02-25 01:52 | P.CONS ---
History of Present Illness - Reason for Consult Consult date: 02/25/24 Medical management postop - Chief Complaint Medical management postop - History of Present Illness 64-year-old male with hypertension and COPD Patient coming in for scheduled right total hip arthroplasty tolerated procedure well with no observed immediate postoperative complications he walked already tolerated p.o. intake pain he reports is well-controlled Denies any chest pain trouble breathing nausea vomiting leg pain review of systems Pertinent positives as noted in HPI. All other systems were reviewed and are negative on exam Constitutional: No acute distress, conversant, pleasant Eyes: Anicteric sclerae, moist conjunctiva, Pupils equal round reactive to light ENMT: NC/AT Oropharynx clear, no erythema, or exudates Neck: Supple, no masses, or JVD No carotid bruits No thyromegaly Lungs: Clear to auscultation Clear to percussion Normal respiratory effort, no accessory muscle use Cardiovascular: Heart regular in rate and rhythm, No murmurs, gallops, or rubs No peripheral edema Abdominal: Soft Nontender, no guarding, rebound or rigidity Abdomen moving with respiration Normoactive bowel sounds Extremities: No digital cyanosis No clubbing Pedal pulses intact and symmetrical Radial pulses intact and symmetrical No calf tenderness Psychiatric: Alert and oriented to person, place and time Neuro Muscles Strength 5/5 in all 4 extremities with limited exam of her right lower extremity due to postop Sensation to light touch grossly present throughout Cranial nerves II-XII grossly intact Past Medical History Past Medical History: Chest Pain / Angina, COPD, GERD/Reflux, Hyperlipidemia, Hypertension, Osteoarthritis (OA) Additional Past Medical History / Comment(s): irregular heart rate, heart murmur, hx. aortic aneurysm, no recent or current chest pain, left shoulder-hurt few weeks ago History of Any Multi-Drug Resistant Organisms: None Reported Past Surgical History: Heart Catheterization, Orthopedic Surgery Additional Past Surgical History / Comment(s): harpreet knees ACL repair Past Anesthesia/Blood Transfusion Reactions: No Reported Reaction Past Psychological History: Anxiety Smoking Status: Former smoker Past Alcohol Use History: Occasional Additional Past Alcohol Use History / Comment(s): smoked 30 years 2 ppd quit for 10 years and in 2015 began smoking pipe, quit smoking December 2023 Past Drug Use History: None Reported - Past Family History Brother(s) Additional Family Medical History / Comment(s): 2 brothers with aortic aneurysm, 1 with brain cancer Mother Family Medical History: Cancer Additional Family Medical History / Comment(s): lung cancer Medications and Allergies Home Medications Medication Instructions Recorded Confirmed Type Aspirin [Adult Low Dose Aspirin EC] 81 mg PO DAILY 01/01/18 02/24/24 History Multivitamins, Thera [Multivitamin 1 tab PO DAILY 09/11/20 02/24/24 History (formulary)] Omeprazole Magnesium [PriLOSEC OTC] 20 mg PO DAILY 09/11/20 02/24/24 History Albuterol Inhaler [Ventolin Hfa 1 - 2 puff INHALATION Q6H PRN 08/04/23 02/24/24 History Inhaler] Atorvastatin [Lipitor] 80 mg PO DAILY 08/04/23 02/24/24 History Ibuprofen [Motrin] 800 mg PO Q6H PRN 08/04/23 02/24/24 History Levothyroxine Sodium [Synthroid] 25 mcg PO DAILY 08/04/23 02/24/24 History Losartan Potassium [Cozaar] 100 mg PO DAILY 08/04/23 02/24/24 History Tiotropium 18 Mcg/Puff [Spiriva] 1 puff INHALATION BID 08/04/23 02/24/24 History amLODIPine [Norvasc] 10 mg PO DAILY 08/04/23 02/24/24 History carvediloL [Coreg] 3.125 mg PO BID 08/04/23 02/24/24 History Allergies Allergy/AdvReac Type Severity Reaction Status Date / Time No Known Allergies Allergy Verified 02/24/24 12:26 Physical Exam Vitals: Vital Signs Temp Pulse Pulse Resp BP BP Pulse Ox 02/24/24 20:00 97.9 F 81 143/84 99 02/24/24 17:20 63 16 130/78 98 02/24/24 17:05 66 16 129/80 96 02/24/24 16:50 63 16 149/75 96 02/24/24 16:35 63 16 130/79 97 02/24/24 16:20 69 16 101/59 100 02/24/24 16:05 96.8 F L 73 15 95/55 95 02/24/24 13:19 75 18 156/91 100 02/24/24 12:29 97.5 F L 75 18 173/85 100 Intake and Output 05/02/24/24 02/25/24 14:59 22:59 06:59 Intake Total 1051 100 Output Total 150 Balance 1051 -50 Intake: IV 1051 100 Output: Estimated Blood Loss 150 Other: Voiding Method Toilet # Voids 1 Weight 84.4 kg 84.4 kg Assessment and Plan Assessment: Hypertension well-controlled Resume amlodipine 10 mg p.o. daily Resume Coreg 3.125 mg p.o. twice daily Resume losartan 100 mg p.o. daily Hypothyroid resume levothyroxine 25 mcg daily p.o. Hyperlipidemia continue with atorvastatin 80 mg p.o. daily Patient stable from medical standpoint thank you for this consultation Check CBC BMP in the morning
[2024-02-25] MEDS: LEVOTHYROXINE 25 MCG TAB PO SCH (06:04)
[2024-02-25] MEDS: RIVAROXABAN 10 MG TAB PO SCH (07:52)
[2024-02-25] MEDS: carvediloL 3.125 MG TAB PO SCH (07:52)
[2024-02-25] MEDS: amLODIPine 10 MG TAB PO SCH (07:52)
[2024-02-25] MEDS: LOSARTAN 50 MG TAB PO SCH (07:52)
[2024-02-25 07:53] VITALS: BP 126/74; PULSE 93; RESP 18; TEMP 98.4
[2024-02-25 08:45] LABS: Basophils # (A) 0.01 X 10*3/uL (0.00-0.10); Basophils % (A) 0.1 %; Eosinophils # (A) 0 X 10*3/uL (0.04-0.35); Eosinophils % (A) 0 %; HCT 28.3 % (39.6-50.0); HGB 9.9 g/dL (13.0-17.0); Lymphocytes # (A) 0.97 X 10*3/uL (0.90-5.00); Lymphocytes % (A) 10.8 %; MCH 33.1 pg (27.0-32.0); MCV 94.6 FL (80.0-97.0); Mean Platelet Volume 10.7 FL (9.5-12.2); Monocytes # (A) 0.94 X 10*3/uL (0.20-1.00); Monocytes % (A) 10.5 %; NRBC Per 100 WBC 0 X 10*3/uL (0.00-0.01); Neutrophils % (A) 78.2 %; Platelet Count 162 X 10*3/uL (140-440); RBC 2.99 X 10*6/uL (4.40-5.60); RDW 12.1 % (11.5-14.5); WBC 8.96 X 10*3/uL (4.50-10.00)
[2024-02-25 08:48] LABS: ALT 21 U/L (10-49); AST 26 U/L (14-35); Albumin 3.9 g/dL (3.8-4.9); Albumin/Globulin Ratio 1.95 Ratio (1.60-3.17); Alkaline Phosphatase 69 U/L (41-126); BUN/Creat Ratio 14.11 Ratio (12.00-20.00); Blood Urea Nitrogen 12.7 mg/dL (9.0-27.0); Calcium 8.9 mg/dL (8.7-10.3); Carbon Dioxide 21.3 mmol/L (21.6-31.8); Chloride 105 mmol/L (96-109); Glucose 130 mg/dL (70-110); Potassium 3.8 mmol/L (3.5-5.5); Sodium 140 mmol/L (135-145); Total Bilirubin <0.2 mg/dL (0.3-1.2); Total Protein 5.9 g/dL (6.2-8.2)
--- NOTE | 2024-02-25 11:21 | P.DS ---
Providers Date of admission: 02/24/2024 Expected date of discharge: 02/25/24 Attending physician: José Rodriguez Consults: 02/24/24 15:59 Consult Physician Routine Consulting Provider: Yoli Dave Consult Reason/Comments: meidcal management s/p direct anterior right total hip arthroplasty Do you want consulting provider notified?: Yes Primary care physician: [facility] Hospital Course: Date of admission: 02/24/2024 Date of discharge: 02/25/2024 Admission diagnosis: Right hip osteoarthritis Discharge diagnosis: same Attending physician: Dr. Rodriguez Surgical procedures: Direct anterior right total hip arthroplasty Brief history: Patient is a 63-year-old male with a history of progressive primary right hip osteoarthritis. At this point patient has failed conservative treatment measures and has opted to proceed with a elective direct anterior right total hip arthroplasty. Hospital course: Details of patient's surgery can be found in operative report. Patient tolerated the procedure well and was subsequently transported to orthopedic floor. Patient's orthopeidc and medical care was provided daily. Patient had daily laboratory tests performed for evaluation of overall blood counts. Patient had daily physical therapy to include strengthening range of motion as well as education with walker ambulation. Patient was treated with Xarelto for their postoperative DVT prophylaxis during their inpatient stay. Patient was noted to have a relatively uneventful postoperative course. Patient reported satisfactory pain control with oral pain medications by postoperative day 1. Patient showed satisfactory progress with physical therapy. Patient moved steadily through the program and had no difficulty meeting the goals by postoperative day 1. Given patient's otherwise satisfactory course and having met physical therapy goals, plan is to discharge patient home with health services on postoperative day 1. Discharge condition/disposition: Patient will be discharged home with health services in stable condition. Discharge medications: Instructions are given on resumption of patient's normal daily medications per primary care recommendation, in addition patient will be prescribed [place]; senna; Eliquis 2.5 mg twice a day 2 weeks. Discharge instructions: 1. Wound care and infection precautions, keep incision dry and covered while sh owering, no lotions, creams, moisturizers. No soaking, tubs, pools, hottubs. Do not scrub over the incision. 2. Weight-bear as tolerated with walker / cane until follow-up. 3. Ice and elevate when necessary. Do not exceed 20 minutes per hour with ice pack. 4. Utilize compression sleeve until seen at first follow up appointment. 5. Visiting nursing care. 6. Home physical therapy. 7. Pain meds and anticoagulants per prescription. 8. Pain medication has potential to cause constipation. Increase oral fluid and fiber intake. Contact primary care provider if you have not had a bowel movement within 48 hours after discharge 9. No anti-inflammatory medication until discussed at first post operative visit, this including Motrin, Aleve, Mobic, Diclofenac. 10. Follow up in office at 2 weeks postop with Kareem Olivier PA-C / Mt Workman PA-C 11. Follow up with your primary care doctor 7-10 days after discharge. 12. Contact [facility] with any questions, . Keep incision clean, dry, intact. While showering, cover fusion tape with an air. Keep fusion tape on until follow-up appointment in office at 2 weeks Assessment: Right hip osteoarthritis Procedures: Direct anterior right total hip arthroplasty Patient Condition at Discharge: Good Plan - Discharge Summary Discharge Rx Participant: Yes New Discharge Prescriptions: New Apixaban [Eliquis] 2.5 mg PO BID #60 tab Sennosides/Docusate Sodium [Senna Plus 8.6-50 mg Softgel] 1 each PO DAILY #20 capsule HYDROcodone/APAP 7.5-325MG [[place] 7.5-325] 1 - 2 tab PO Q6HR PRN #32 tab PRN Reason: Pain No Action Aspirin [Adult Low Dose Aspirin EC] 81 mg PO DAILY Omeprazole Magnesium [PriLOSEC OTC] 20 mg PO DAILY Multivitamins, Thera [Multivitamin (formulary)] 1 tab PO DAILY Ibuprofen [Motrin] 800 mg PO Q6H PRN PRN Reason: Pain Tiotropium 18 Mcg/Puff [Spiriva] 1 puff INHALATION BID Levothyroxine Sodium [Synthroid] 25 mcg PO DAILY Albuterol Inhaler [Ventolin Hfa Inhaler] 1 - 2 puff INHALATION Q6H PRN PRN Reason: Shortness Of Breath Losartan Potassium [Cozaar] 100 mg PO DAILY amLODIPine [Norvasc] 10 mg PO DAILY carvediloL [Coreg] 3.125 mg PO BID Atorvastatin [Lipitor] 80 mg PO DAILY Discharge Medication List Aspirin [Adult Low Dose Aspirin EC] 81 mg PO DAILY 01/01/18 [History] Multivitamins, Thera [Multivitamin (formulary)] 1 tab PO DAILY 09/11/20 [History] Omeprazole Magnesium [PriLOSEC OTC] 20 mg PO DAILY 09/11/20 [History] Albuterol Inhaler [Ventolin Hfa Inhaler] 1 - 2 puff INHALATION Q6H PRN 08/04/23 [History] Atorvastatin [Lipitor] 80 mg PO DAILY 08/04/23 [History] Ibuprofen [Motrin] 800 mg PO Q6H PRN 08/04/23 [History] Levothyroxine Sodium [Synthroid] 25 mcg PO DAILY 08/04/23 [History] Losartan Potassium [Cozaar] 100 mg PO DAILY 08/04/23 [History] Tiotropium 18 Mcg/Puff [Spiriva] 1 puff INHALATION BID 08/04/23 [History] amLODIPine [Norvasc] 10 mg PO DAILY 08/04/23 [History] carvediloL [Coreg] 3.125 mg PO BID 08/04/23 [History] Apixaban [Eliquis] 2.5 mg PO BID #60 tab 02/25/24 [Rx] HYDROcodone/APAP 7.5-325MG [[place] 7.5-325] 1 - 2 tab PO Q6HR PRN #32 tab 02/25/24 [Rx] Sennosides/Docusate Sodium [Senna Plus 8.6-50 mg Softgel] 1 each PO DAILY #20 capsule 02/25/24 [Rx] Follow up Appointment(s)/Referral(s): Mt Workman, JOSE LUIS [PHYSICIAN [employer]] - 2 Weeks [facility] [NON-STAFF] - 1-2 Days (Merged With [facility] will call you to schedule your in home nursing and physical therapy visits. ) Patient Instructions/Handouts: Anterior Hip Replacement (DC), Anterior Hip Re placement (GEN) Activity/Diet/Wound Care/Special Instructions: Orthopedic Discharge Instructions: 1. Wound care and infection precautions, keep incision dry and covered while showering, no lotions, creams, moisturizers. No soaking, pools, hot tubs. Do not scrub over incision. 2. Weight-bear as tolerated with walker / cane until follow-up. 3. Ice and elevate when necessary. Do not exceed 20 minutes per hour with ice pack. 4. Utilize compression sleeve until seen at first follow up appointment. 5. Pain meds and anticoagulants per prescription. 6. Pain medication has potential to cause constipation. Increase oral fluid and fiber intake. Contact primary care provider if you have not had a bowel movement within 48 hours after discharge. 7. No anti-inflammatory medication until discussed at first post operative visit, this including Motrin, Aleve, Mobic, Diclofenac. 8. Follow up in office at 2 weeks postop with Kareem Olivier PA-C / [facility] Workman PA-C 9. Follow up with your primary care doctor 7-10 days after discharge. 10. Contact [facility] with any questions, . Keep incision clean, dry, intact. While showering, cover fusion tape with Saran wrap. Keep fusion tape on until follow-up appointment office in 2 weeks. Discharge Disposition: HOME WITH HOME HEALTH SERVICES
[2024-02-25] MEDS: HYDROmorphone 1 MG/ML 1 ML SYRINGE IVP PRN (11:24)
--- NOTE | 2024-02-25 11:26 | P.PN ---
Subjective Progress Note Date: 02/25/24 Principal diagnosis: Right hip osteoarthritis Patient seen at bedside this morning sitting up in chair with legs elevated and dressing present over right hip. Patient says therapeutic go well this morning. Patient says he walked down the woods and up-and-down says. Patient says he has urinated several times since yesterday without issue. Patient says he has not had bowel movement yet, however, patient says she has been passing gas. Patient says his will be able to help him out at home. Patient says he does have a walker at home. Patient says he is feeling 42 home later today. Patient denies chest pain, fever, shortness breath, nausea, vomiting, change in vision, loss of bowel/bladder control. Objective - Vital Signs Vital signs: Vital Signs Temp 98.4 F 02/25/24 07:47 Pulse 93 02/25/24 07:47 Resp 18 02/25/24 07:47 BP 126/74 02/25/24 07:47 Pulse Ox 97 02/25/24 07:47 FiO2 Intake & Output 02/24/24 02/25/24 02/25/24 18:59 06:59 18:59 Intake Total 1151 Output Total 150 Balance 1001 Weight 84.4 kg Intake: IV 1151 Output: Estimated Blood Loss 150 Other: Voiding Method Toilet # Voids 1 - Exam right hip: Incision is clean, dry, and intact. The exofin fusion tape is in good condition. There is minimal soft tissue swelling and ecchymosis surrounding the medial and lateral aspects of the incision. Calf is soft, no tenderness with palpation. Plantar flexion, dorsiflexion, EHL, FHL are intact. Sensory exam to light touch throughout the extremity is intact, dorsal pedis pulses 2+. - Labs CBC & Chem 7: 02/25/24 05:33 02/25/24 05:33 Labs: Abnormal Lab Results - Last 24 Hours (Table) 02/25/24 02/25/24 Range/Units 05:33 05:33 RBC 2.99 L (4.40-5.60) X 10*6/uL Hgb 9.9 L (13.0-17.0) g/dL Hct 28.3 L (39.6-50.0) % MCH 33.1 H (27.0-32.0) pg Eosinophils # 0 L (0.04-0.35) X 10*3/uL Carbon Dioxide 21.3 L (21.6-31.8) mmol/L Anion Gap 13.70 H (4.00-12.00) mmol/L Glucose 130 H (70-110) mg/dL Total Bilirubin <0.2 L (0.3-1.2) mg/dL Total Protein 5.9 L (6.2-8.2) g/dL Assessment and Plan Assessment: 1. Right hip osteoarthritis - Postop day #1 status post right total hip arthroplasty Plan: 1. Right hip osteoarthritis - direct anterior right total hip arthroplasty performed yesterday, 02/24/2024. Patient stable at this point. Patient did do well with therapy. Patient does have a walker home. Discharge home today with health services. 2. Appreciate medical management 3. Pain management - [facility] 4. DVT prophylaxis - [facility]. Going home with Eliquis 2.5 mg twice a day 2 weeks 5. GI prophylaxis - senna 6. PT/OT - weightbearing as tolerated with walker 7. Encourage incentive spirometer use 8. Discharge planning - home today with health services Time with Patient: Less than 30
--- NOTE | 2024-02-25 12:40 | P.ANPRN ---
Procedure Note - Anesthesia - Nerve Block Performed Right Joe Single Time Out Performed: Yes Date of Procedure: 02/24/24 Procedure Start Time: 13:14 Procedure Stop Time: 13:17 Location of Patient: PreOp Indication: Acute Post-Operative Pain, Requested by Surgeon Sedation Type: Sedate with meaningful contact maintained Preparation: Sterile Prep Position: Supine Needle Types: Pajunk Needle Gauge: 21 Ultrasound used to visualize needle placement: Yes Ultrasound used to observe medication spread: Yes Blood Aspirated: No Pain Paresthesia on Injection Noted: No Resistance on Injection: Normal Image Stored and Saved: Yes Events: Other (see comment) (Ropivacaine 0.5% 20 cc plus dexamethasone 4 mg)
--- NOTE | 2024-02-25 16:08 | P.PN ---
Subjective Progress Note Date: 02/25/24 Hospital course: Patient is a pleasant 63-year-old male with a past medical history of hypertension, hyperlipidemia, GERD, COPD, and osteoarthritis. He is currently admitted under orthopedic surgery team status post right total hip arthroplasty. We were consulted for medical management throughout hospitalization. Physical exam: Patient seen and fully evaluated at bedside this morning. He reports feeling great with the exception of pain/discomfort in right thigh. Patient reports moderate swelling and discomfort currently rating 7 out of 10 at this time. He denies having any focal numbness or weakness, movement and sensation intact. Patient ambulating with walker. He denies any postoperative nausea or vomiting and denies having any postoperative urinary retention. Vital signs reviewed and stable. General: Nontoxic, no distress and appears stated age. Derm: Skin warm and dry, normal coloration for ethnicity. Head: Atraumatic, normocephalic and symmetric. Eyes: EOM's intact, no lid lag, and anicteric sclera Mouth: no lip lesions, mucus membranes moist Cardiovascular: regular rate and rhythm with normal S1S2, no murmur, positive posterior tibial pulses bilaterally, and cap refill < 2 seconds. Lungs: Respirations even, regular, and unlabored on room air. Lungs CTA bilaterally, no rhonchi, no rales, no wheezing, and no accessory muscle usage. Abdominal: soft, nontender to palpation, no guarding, no appreciable organomegaly Ext: ROM intact. No gross muscle atrophy, no edema, no contractures Neuro: Speech clear, face symmetrical and CN II-XII grossly intact with no noted focal neuro deficits Psych: Alert and oriented to person, place, time, and situation. Appropriate and pleasant affect. Assessment and Plan of Care: Status post right total hip arthroplasty. Management per primary admitting orthopedic surgery team including DVT prophylaxis, pain management, wound/dressing management, weightbearing, and PT/OT. COPD, not in acute exacerbation, continue Ventolin inhaler 2 puffs every 6 hours as needed for shortness of breath and/or wheezing and Spiriva inhaler 1 puff twice daily. Hyperlipidemia. Continue daily medication regimen with atorvastatin 80 mg daily. Hypertension. Continue daily medication regimen with losartan 100 mg daily, amlodipine 10 mg daily, carvedilol 3.125 mg twice daily. Hypothyroidism continue daily medication regimen with levothyroxine 25 mcg daily. Data reviewed: Postoperative labs reviewed. CBC showing stable postoperative blood loss anemia with hemoglobin of 9.9. BMP showing mild hypocarbia with bicarb of 21.3 and slightly elevated anion gap of 13.7 otherwise normal findings. Blood glucose 130. Liver profile unremarkable. Vital signs reviewed. Blood pressure 126/74, heart rate 73, respiratory rate 18, temp 98.4 F, and SpO2 of 97% on room air. Patient cleared from medical perspective for discharge once cleared by primary admitting orthopedic surgery team. Thank you for allowing us to participate in the care of this pleasant patient. Do not hesitate to contact us with questions. Someone can be reached from the [facility] hospitalist group all hours of the day at [phone] or via [employer]oom. Patient was seen independently by Nurse Pracitioner. This document was prepared using [employer] dictation software. Please allow for errors in software installer, while rare they do occur. I reviewed the documentation as provided by the CAMELIA above, who is the original author of this note. I agree with the documented assessment and plan, with the following changes: none Objective - Vital Signs Vital signs: Vital Signs Temp 98.4 F 02/25/24 07:47 Pulse 93 02/25/24 07:47 Resp 18 02/25/24 07:47 BP 126/74 02/25/24 07:47 Pulse Ox 97 02/25/24 07:47 FiO2 Intake & Output 02/24/24 02/25/24 02/25/24 18:59 06:59 18:59 Intake Total 1151 Output Total 150 Balance 1001 Weight 84.4 kg Intake: IV 1151 Output: Estimated Blood Loss 150 Other: Voiding Method Toilet # Voids 1 - Labs CBC & Chem 7: 02/25/24 05:33 02/25/24 05:33
== END 2024-02-25 14:17 | disposition home health service (06) ==
LOC: OR 11:49 → 4SSUR 15:55 → OR 02-25 14:17
PROVIDERS: ATTEND Orthopaedic Surgery
DX: M16.11 Unilateral primary osteoarthritis, right hip (principal); G89.18 Other acute postprocedural pain; J44.9 Chronic obstructive pulmonary disease, unspecified; K21.9 Gastro-esophageal reflux disease without esophagitis; E78.5 Hyperlipidemia, unspecified; I10 Essential (primary) hypertension; F41.9 Anxiety disorder, unspecified; F10.90 Alcohol use, unspecified, uncomplicated; Z87.891 Personal history of nicotine dependence; Z80.1 Family history of malignant neoplasm of trachea, bronchus and lung; Z79.82 Long term (current) use of aspirin; Z79.51 Long term (current) use of inhaled steroids; Z79.899 Other long term (current) drug therapy
CPT/HCPCS: 97162; 97535; 97166; 64447; 80053; 85025; 73501; 27130; C1776; J2250; J1100; J0690 ×3; J2405; J1170

== ENCOUNTER → 2024-08-05 | Outpatient (CLI) | payer OTHER ==
--- NOTE | 2024-08-05 12:54 | CTL ---
EXAMINATION TYPE: CT Low Dose Lung DATE OF EXAM ORDERED: 08/05/2024 COMPARISON: 07/16/2023 CLINICAL INDICATION: Male, 64 years old with history of Z12.2 ENCNTR SCREEN FOR MALIGN NEOPL OF RESP Z87.8; H, tobacco use quit in 2023, Lung cancer screening, History of Smoking/tobacco use. TECHNIQUE: Low dose computed tomography scan was performed through the chest at 1 mm thick sections a nd reconstructed images in multiple planes at 1 mm and [address] DLP: 91.[address] CTDI: 2.4 mGy Automated exposure control for dose reduction was used. CT DIAGNOSTIC QUALITY: Satisfactory FINDINGS: There are stable mild emphysematous changes in upper lobes. Stable 6 mm pulmonary nodule in the right upper lobe posteriorly. There are a few scattered stable micronodules. No new or suspicious lung mas s or nodule is seen. There is no airspace consolidation or abnormal interstitial density. There is no pleural effusion, pl eural thickening or pneumothorax. The great vessels chest are normal and there is no mediastinal, hilar or axillary adenopathy. Limited scanning through the upper abdomen reveals no gross abnormality. No focal osseous lesions are seen. IMPRESSION: 1. Lung metastases category 2 benign findings. Continue routine screening at yearly intervals. 2. Mild emphysematous changes. 3. No acute cardiopulmonary disease. [facility], , 08/05/2024 12:52 PM
== END | disposition home or self-care (01) ==
LOC: RADCTMAIN 11:34
PROVIDERS: ATTEND Internal Medicine Pulmonary Disease
CPT/HCPCS: 71271

== ENCOUNTER → 2024-08-05 | Outpatient (CLI) | payer OTHER ==
[2024-08-05 15:38] LABS: Basophils # (A) 0.05 X 10*3/uL (0.00-0.10); Basophils % (A) 0.8 %; Eosinophils # (A) 0.26 X 10*3/uL (0.04-0.35); HCT 38.7 % (39.6-50.0); HGB 13.5 g/dL (13.0-17.0); Lymphocytes # (A) 1.98 X 10*3/uL (0.90-5.00); Lymphocytes % (A) 30.4 %; MCH 32.8 pg (27.0-32.0); MCHC 34.9 g/dL (32.0-37.0); MCV 94.2 FL (80.0-97.0); Mean Platelet Volume 11.3 FL (9.5-12.2); Monocytes % (A) 7.7 %; NRBC Per 100 WBC 0 X 10*3/uL (0.00-0.01); Neutrophils # (A) 3.71 X 10*3/uL (1.80-7.70); Neutrophils % (A) 56.8 %; Platelet Count 210 X 10*3/uL (140-440); RBC 4.11 X 10*6/uL (4.40-5.60); RDW 13.4 % (11.5-14.5); WBC 6.52 X 10*3/uL (4.50-10.00)
[2024-08-05 15:56] LABS: Blood Urea Nitrogen 12.8 mg/dL (9.0-27.0); Calcium 9.9 mg/dL (8.7-10.3); Carbon Dioxide 24.5 mmol/L (21.6-31.8); Chloride 101 mmol/L (96-109); Glucose 100 mg/dL (70-110); Potassium 4.4 mmol/L (3.5-5.5); Sodium 140 mmol/L (135-145)
[2024-08-05 16:09] LABS: INR 0.97 sec (0.93-1.11); Prothrombin Time 10.5 sec (9.9-11.9)
== END | disposition home or self-care (01) ==
LOC: LABPAT 11:01
PROVIDERS: ATTEND Orthopaedic Surgery
DX: Z01.812 Encounter for preprocedural laboratory examination (principal); M17.11 Unilateral primary osteoarthritis, right knee; Z22.322 Carrier or suspected carrier of Methicillin resistant Staphylococcus aureus
CPT/HCPCS: 80048; 85025; 85610; 87070

== ENCOUNTER 2024-08-17 08:22 | Day surgery (SDC) | payer OTHER ==
--- NOTE | 2024-08-16 08:52 | P.HPOR ---
History of Present Illness H&P Date: 08/16/24 Chief Complaint: Right knee pain The patient is a 64-year-old male who presents with progressive right knee pain for the past several years worsening recently. He notes anterior medial pain with any weightbearing activities. He has giving way. He is tried medications, injections, and use of a cane without much relief. He notes daily pain that limits him. Review of Systems Per HPI Past Medical History Past Medical History: Chest Pain / Angina, COPD, GERD/Reflux, Hyperlipidemia, Hypertension, Osteoarthritis (OA), Thyroid Disorder Additional Past Medical History / Comment(s): irregular heart rate, heart murmur, hx. aortic aneurysm, left shoulder will need surgery on it soon History of Any Multi-Drug Resistant Organisms: None Reported Past Surgical History: Heart Catheterization, Joint Replacement, Orthopedic Surgery Additional Past Surgical History / Comment(s): harpreet knees ACL repair, rt hip replaced. hand surgery duptryn's contracture Past Anesthesia/Blood Transfusion Reactions: No Reported Reaction Smoking Status: Former smoker - Past Family History Brother(s) Additional Family Medical History / Comment(s): 2 brothers with aortic aneurysm, 1 with brain cancer Mother Family Medical History: Cancer Additional Family Medical History / Comment(s): lung cancer Medications and Allergies Home Medications Medication Instructions Recorded Confirmed Type Aspirin [Adult Low Dose Aspirin EC] 81 mg PO DAILY 01/01/18 08/11/24 History Multivitamins, Thera [Multivitamin 1 tab PO DAILY 09/11/20 08/11/24 History (formulary)] Omeprazole Magnesium [PriLOSEC OTC] 20 mg PO DAILY 09/11/20 08/11/24 History Ibuprofen [Motrin] 800 mg PO Q6H PRN 08/04/23 08/11/24 History Levothyroxine Sodium [Synthroid] 25 mcg PO DAILY 08/04/23 08/11/24 History Losartan Potassium [Cozaar] 100 mg PO DAILY 08/04/23 08/11/24 History amLODIPine [Norvasc] 10 mg PO DAILY 08/04/23 08/11/24 History carvediloL [Coreg] 3.125 mg PO BID 08/04/23 08/11/24 History Allergies Allergy/AdvReac Type Severity Reaction Status Date / Time No Known Allergies Allergy Verified 08/11/24 12:42 Physical Examination - Knee right Appearance: effusion Effusion grade: grade 1 Valgus alignment in stance: 10 degrees Tenderness with palpation: anterior, lateral Pain: throughout ROM Gait: limping ROM: extension: -10 degrees ROM: flexion: 80 degrees Crepitus with motion: Yes Strength: extension: 5/5 Strength: flexion: 5/5 Meniscal tests: lateral meniscal tests: positive, lateral joint line pain: positive Results Patient is a well-developed well-nourished male approximately 6 foot tall, 195 pounds of mesomorphic habitus. HEENT exam is nonfocal, neck supple. He has painless passive motion of the right hip. Straight leg raise is negative. He is tender about the medial and lateral joint line of the right knee. Collaterals were stable, Lelia's 1+, Rita's is equivocal. His distal neurovascular exam appears intact in the right lower extremity. - Diagnostic results Knee x-ray: image reviewed (3 views of the right knee obtained the office shows severe tricompartment last her arthrosis with [id number] changes and subchondral sclerosis. Metallic interference screws are noted in the distal femur and proximal tibia.) Assessment and Plan Assessment: Right knee severe tricompartmental osteoarthrosis History of right ACL reconstruction with retained hardware Plan: I talked to the patient at length regarding his condition along treatment options. At this point he's quite symptomatic having pain and mechanical symptoms related to his right knee osteoarthrosis despite extensive conservative measures. After a thorough discussion he opts to proceed with surgery. We will plan to proceed with right total knee arthroplasty. We will potentially remove his previous hardware if needed.
[~2024-08-17 08:22] MED LIST changes: -HYDROmorphone 0.5 MG/0.5 ML SYRINGE IVP PRN; -LIDOCAINE 1% (10MG/ML) FOR IV START INTRADERMA PRN; -MIDAZOLAM 2 MG/2 ML VIAL IV PRN; +fentaNYL (PF) 50 MCG/ML 2 ML AMP IVP PRN
[2024-08-17] MEDS: ACETAMINOPHEN TAB 500 MG TAB PO PRN (08:51)
[2024-08-17] MEDS: MELOXICAM 7.5 MG TAB PO PRN (08:52)
[2024-08-17] MEDS: MIDAZOLAM 2 MG/2 ML VIAL IV ONE (09:12)
[2024-08-17] MEDS: DEXAMETHASONE SOD PHOSPHATE 4 MG/ML 1 ML VIAL IV ONE (09:26)
[2024-08-17] MEDS: ONDANSETRON 4 MG/2 ML VIAL IVP ONE (09:27)
[2024-08-17] MEDS: LACTATED RINGERS 1,000 ML IV SCH (09:29)
--- NOTE | 2024-08-17 09:35 | P.ANPRN ---
Procedure Note - Anesthesia - Nerve Block Performed Right [place] Single Time Out Performed: Yes Date of Procedure: 08/17/24 Procedure Start Time: :12 Procedure Stop Time: :17 Location of Patient: PreOp Indication: Acute Post-Operative Pain, Analgesia, Requested by Surgeon Sedation Type: Sedate with meaningful contact maintained Preparation: Sterile Prep Position: Left Lateral Catheter: None Needle Types: Pajunk Needle Gauge: 21 Ultrasound used to visualize needle placement: Yes Ultrasound used to observe medication spread: Yes Injectate: 0.5% Ropivacaine (see comment for volume) ([id number]) Blood Aspirated: No Pain Paresthesia on Injection Noted: No Resistance on Injection: Normal Image Stored and Saved: Yes Events: Uneventful and Well Tolerated
--- NOTE | 2024-08-17 09:37 | P.ANPRN ---
Procedure Note - Anesthesia - Nerve Block Performed Right Adductor Canal Infusion Time Out Performed: Yes Date of Procedure: 08/17/24 Procedure Start Time: : Procedure Stop Time: : Location of Patient: PreOp Indication: Acute Post-Operative Pain, Analgesia, Requested by Surgeon Sedation Type: Sedate with meaningful contact maintained Preparation: Sterile Prep Position: Supine Catheter: Indwelling Needle Types: On-Q Ultrasound used to visualize needle placement: Yes Ultrasound used to observe medication spread: Yes Injectate: 0.5% Ropivacaine (see comment for volume) (Ropiv 20ml+[id number]) Blood Aspirated: No Pain Paresthesia on Injection Noted: No Resistance on Injection: Normal Image Stored and Saved: Yes Events: Uneventful and Well Tolerated
[2024-08-17] MEDS: IV FLUID CONTINUATION 1,000 ML IV ONE (09:59)
[2024-08-17] MEDS ORDERED: PROPOFOL 10 MG/ML 20 ML VIAL IV ONE (10:11)
[2024-08-17] MEDS ORDERED: fentaNYL (PF) 50 MCG/ML 2 ML AMP ONE (10:11)
[2024-08-17] MEDS ORDERED: ROPIVACAINE 5 MG/ML 30 ML VIAL ONE (10:11)
[2024-08-17] MEDS ORDERED: DEXAMETHASONE SOD PHOSPHATE 4 MG/ML 1 ML VIAL ONE (10:11)
[2024-08-17] MEDS ORDERED: MIDAZOLAM 2 MG/2 ML VIAL ONE (10:11)
[2024-08-17] MEDS ORDERED: TRANEXAMIC 1,000 MG/100ML-NACL PREMIX BAG ONE (10:11)
[2024-08-17] MEDS: ceFAZolin 1,000 MG in SODIUM CHLORIDE 0.9% 1,000 ML IRRIGATION ONE (10:41)
[2024-08-17] MEDS: LACTATED RINGERS 1,000 ML IV ONE (11:06)
[2024-08-17] MEDS ORDERED: NALOXONE 0.4 MG/ML 1 ML VIAL IV PRN (11:54)
[2024-08-17] MEDS ORDERED: ONDANSETRON 4 MG/2 ML VIAL IVP PRN (11:54)
[2024-08-17] MEDS ORDERED: MAGNESIUM HYDROXIDE 2,400 MG/30 ML CUP PO PRN (11:54)
[2024-08-17] MEDS ORDERED: HYDROmorphone 0.5 MG/0.5 ML SYRINGE IVP PRN (11:54)
[2024-08-17] MEDS ORDERED: HYDROcodone/APAP 5-325MG 1 EACH TAB PO PRN (11:54)
--- NOTE | 2024-08-17 12:14 | P.OP ---
Date of Procedure: 08/17/24 Preoperative Diagnosis: Right knee severe tricompartmental osteoarthrosis Retained hardware right distal femur/right proximal tibia Postoperative Diagnosis: Same Procedure(s) Performed: Right total knee arthroplastycementedposterior stabilized Removal hardware right distal femur/right proximal tibiainterference screws Implants: DePuy attune size 8 cemented femoral component, size 8 cemented tibial component with a 14 x 50 mm stem extension, 9 mm articular surface, 38 mm cemented patellar component. This is a posterior stabilized implant. Anesthesia: regional, spinal Surgeon: José Rodriguez Multiple Drum Sander #1: Mt Workman Estimated Blood Loss (ml): 50 Pathology: none sent Condition: stable Disposition: PACU Indications for Procedure: The patient is a 64-year-old male who presents with progressive right knee pain secondary to osteoarthrosis despite conservative measures. A discussion of the risks and benefits of operative intervention versus continued conservative measures was made with the patient. Specific risks of surgery to include infection, neurovascular injury, development of blood clots, fracture, possible component loosening/failure and possible need for subsequent procedure was discussed. Informed consent was obtained. Operative Findings: As below Description of Procedure: The patient was brought to the operating room, and after induction of spinal anesthesia the right lower extremity was prepped and draped in a normal fashion. The tourniquet was inflated to 270 mm marker. A longitudinal incision extending 3 finger breaths above the superior pole of patella extending to the medial aspect the tibial tubercle was then made. The skin and subcutaneous tissues were divided sharply. Electrocautery was used for hemostasis. A medial parapatellar arthrotomy was performed. The medial soft tissues to include the superficial and deep portions of the medial collateral ligament were elevated subperiosteally. The patella was everted. A portion of the retropatellar fat pad was excised sharply. The anterior cruciate ligament was sacrificed. Blunt retractors were placed. A starting hole was made in the distal femur 1 cm anterior to the posterior cruciate ligament origin. An intramedullary femoral guide was then inserted planning on 5 valgus distal cut with 9 mm distal resection. The cutting block was pinned in place. The distal cut was then made. The posterior referencing sizing guide was utilized. I felt size 8 was most appropriate. 3 of external rotation was built into the system and verified off the trans-epicondylar axis and the posterior condyles. The cutting block was pinned in place. The anterior, posterior, and chamfer cuts then made. Bone fragments were removed. The intercondylar guide was placed and the notch cut was made with a sagittal saw. The bone block was removed in one fragment. The distal femoral interference screw was removed with the appropriate screwdriver. The trial component was then placed. There is good anterior to posterior and medial to lateral fit. The distal peg holes were drilled. The trial component was removed. Attention was then paid towards preparing the proximal tibia. An extra medullary guide was utilized in line with the tibial shaft and second metatarsal distally. I planned on 2 mm resection from the medial compartment. The cutting block was pinned in place. The proximal tibial cut was then made. The bone was removed in one fragment. The remnants of the medial and lateral menisci were excised at the capsular junction with electrocautery. The tibia sized most appropriately at size 8. The trial femoral and tibial components were placed along with a 9 mm articular surface. I was able to obtain full flexion and extension with internal and external rotation. After several flexion and extension cycles, the tibial rotation was marked with electrocautery line with the medial one third of the tibial tubercle. Attention was then paid towards preparing the patella. A patella reamer was utilized taking stem to 14 mm of bone stock. A good flush cut was made. The patella sized most appropriately 38 mm. The peg holes were drilled. The trial components placed. I had good patellofemoral tracking with no hands technique. The trial components were then removed. The tibial interference screw was removed with the appropriate screwdriver. The tibia was prepared in the appropriate rotation with appropriate drill and keel punch planning on a 14 x 50 mm tibial stem extension. The posterior osteophytes were removed with a curved osteotome. The flexion and extension gaps were checked and felt to be symmetric at 9 mm. A trial components were then removed. The bony surfaces were prepared with pulsatile lavage and dried. The tibial component was then cemented place was fully seated. Excess cement was removed. The femoral component cemented place and was fully seated. Excess cement was removed. The trial 9 mm articular surface was placed and the knee was put in full extension. The patella component was cemented place. After the cement had sufficiently hardened, the knee was again taken through a range of motion. Again I was able to obtain full flexion and extension with varus and valgus stress. The trial 9 mm articular surface was removed and the final one inserted. This was fully seated. Care was taken to avoid any soft tissue interposition. Pulsatile lavage was again utilized. The medial parapatellar arthrotomy was closed with #2 Ethibond suture. The tourniquet was deflated with approximately 60 minutes total tourniquet time. Final hemostasis was obtained with the cautery. There was minimal bleeding therefore a deep drain was not placed. The subcutaneous tissues were reapproximated with interrupted 2-0 Vicryl sutures. The skin was reapproximated with 3-0 subcuticular strata fix suture. Skin tape and adhesive was applied. A sterile dressing was applied. The patient was awoken from sedation and transferred to recovery room in good condition. Blood loss was estimated at 50 mL. No complications were incurred. Sponge and needle counts were correct at the end of the case. Mt GAONA assisted during the major components of this case to include exposure, bone resection, implantation, and closure.
[2024-08-17] MEDS: ROPIVACAINE 1,100 MG, SODIUM CHLORIDE 0.9% 500 ML 330 ML, EMPTY PAIN BALL 1 EACH MISCELLANE PRN (12:27)
--- NOTE | 2024-08-17 13:17 | XR ---
EXAMINATION TYPE: XR knee limited RT two-view DATE OF EXAM: 08/17/2024 1:03 PM COMPARISON: None CLINICAL INDICATION: Male, 64 years old with history of Evaluation for Postop abnormality and alignme nt; [facility] TECHNIQUE: XR knee limited RT 2 views submitted.. FINDINGS: Status post total knee arthroplasty changes with hardware in appropriate alignment and in tact. No evidence of fracture. Subcutaneous lucencies and lucencies within the joint consistent with surgical changes. Atherosclerosis of the arterial vasculature. Large calcification posterior to the k nee. IMPRESSION: Status post total knee arthroplasty changes with hardware intact and appropriate alignment. No fractu res identified. [facility], , 08/17/2024 1:15 PM
[2024-08-17] MEDS: HYDROmorphone 0.5 MG/0.5 ML SYRINGE IVP PRN (15:40)
[2024-08-17] MEDS: SCOPOLAMINE 1 MG/72 HR PATCH TRANSDERM ONE (16:47)
[2024-08-17] MEDS: HYDROcodone/APAP 7.5-325MG 1 EACH TAB PO PRN (17:34)
--- NOTE | 2024-08-17 18:06 | P.CONS ---
History of Present Illness - Reason for Consult Consult date: 08/17/24 Medical Management Requesting physician: José Rodriguez - History of Present Illness History of Presenting Illness: Patient is a very pleasant 64-year-old male with a past medical history of CAD, hypertension, aortic aneurysm, pulmonary nodule, hypothyroidism, and osteoarthritis. He is currently admitted under orthopedic surgery team status post elective right total knee arthroplasty and removal of hardware from right distal femur/right proximal tibiainterference screws. Surgical procedure was completed by Dr. Rodriguez. We were consulted for medical management throughout hospitalization. Patient was seen and fully evaluated in room 456. He reports feeling great since surgery. He reports only minimal to mild pain compared to what he had previously prior to surgery. He denies having any postoperative nausea or vomiting and reports urinating without any difficulties. Patient denies having any chest pain, palpitations, shortness of breath, abdominal pain, nausea, vomiting, or any other complaints at this time. Review of systems: Pertinent positives and negatives as discussed in HPI, a complete review of systems was performed and all other systems are negative. Physical exam: Vital signs reviewed and stable. General: Nontoxic, no distress and appears stated age. Derm: Skin warm and dry, normal coloration for ethnicity. Head: Atraumatic, normocephalic and symmetric. Eyes: EOM's intact, no lid lag, and anicteric sclera Mouth: no lip lesions, mucus membranes moist Cardiovascular: regular rate and rhythm with normal S1S2, no murmur, positive posterior tibial pulses bilaterally, and cap refill < 2 seconds. Lungs: Respirations even, regular, and unlabored on room air. Lungs CTA bilaterally, no rhonchi, no rales, no wheezing, and no accessory muscle usage. Abdominal: soft, nontender to palpation, no guarding, no appreciable organomegaly Ext: No gross muscle atrophy, no edema, no contractures. Movement and sensation intact. Postoperative dressing/Chevy wrap in place to right knee. Neuro: Speech clear, face symmetrical and CN II-XII grossly intact with no noted focal neuro deficits Psych: Alert and oriented to person, place, time, and situation. Appropriate and pleasant affect. Assessment and Plan of Care: Status post right total knee arthroplasty with removal of hardware from right distal femur/right proximal tibiainterference screws Management per primary admitting orthopedic surgery team including DVT prophylaxis, pain management, wound/dressing management, weightbearing, and PT/OT. Sinus tachycardia -Patient with postoperative sinus tachycardia currently 110s. He denies feeling excessive pain or discomfort. He is also hypertensive at 170/90. Patient does take carvedilol 6.25 mg twice daily and does report taking his morning medication. Patient states history of dysrhythmia. -Order placed for EKG -Patient to be placed on continuous telemetry monitoring. Hypertension -Patient to resume amlodipine 10 mg daily, losartan 100 mg daily and carvedilol 6.25 mg twice daily. Hypothyroidism -Continue daily medication regimen with levothyroxine 25 mcg daily. History of aortic aneurysm -Patient follows with Dr. Duval for monitoring/surveillance. History of pulmonary nodule -Patient to continue to follow with [facility] for monitoring/surveillance. Data and imaging reviewed: Reviewed preoperative EKG showing normal sinus rhythm at 72 bpm with no noted T wave or ST abnormalities showing no signs of acute ischemia. Vital signs reviewed. Blood pressure currently elevated at 170/90, heart rate 109, respiratory rate 16, temp 97.9 F, and SpO2 of 98% on room air. Thank you for allowing us to participate in the care of this pleasant patient. Do not hesitate to contact us with questions. Someone can be reached from the [facility] hospitalist group all hours of the day at [phone] or via [employer]. Patient was seen independently by Nurse Practitioner. This document was prepared using [employer] dictation software. Please allow for errors in director traffic and planning while rare they do occur. Torres Cobos NP rendered care for this patient independently, reviewed the findings and plan as documented in the note above and agree with plan. I did not physically speak with or examine the patient on this date. Past Medical History Past Medical History: Chest Pain / Angina, COPD, GERD/Reflux, Hyperlipidemia, Hypertension, Osteoarthritis (OA), Thyroid Disorder Additional Past Medical History / Comment(s): irregular heart rate, heart murmur, hx. aortic aneurysm, left shoulder will need surgery on it soon History of Any Multi-Drug Resistant Organisms: None Reported Past Surgical History: Heart Catheterization, Joint Replacement, Orthopedic Surgery Additional Past Surgical History / Comment(s): harpreet knees ACL repair, rt hip replaced. hand surgery duptryn's contracture Past Anesthesia/Blood Transfusion Reactions: No Reported Reaction Smoking Status: Former smoker - Past Family History Brother(s) Additional Family Medical History / Comment(s): 2 brothers with aortic aneurysm, 1 with brain cancer Mother Family Medical History: Cancer Additional Family Medical History / Comment(s): lung cancer Medications and Allergies Home Medications Medication Instructions Recorded Confirmed Type Aspirin [Adult Low Dose Aspirin EC] 81 mg PO DAILY 01/01/18 08/11/24 History Multivitamins, Thera [Multivitamin 1 tab PO DAILY 09/11/20 08/11/24 History (formulary)] Omeprazole Magnesium [PriLOSEC OTC] 20 mg PO DAILY 09/11/20 08/11/24 History Ibuprofen [Motrin] 800 mg PO Q6H PRN 08/04/23 08/11/24 History Levothyroxine Sodium [Synthroid] 25 mcg PO DAILY 08/04/23 08/11/24 History Losartan Potassium [Cozaar] 100 mg PO DAILY 08/04/23 08/11/24 History amLODIPine [Norvasc] 10 mg PO DAILY 08/04/23 08/11/24 History carvediloL [Coreg] 6.25 mg PO BID 08/04/23 08/17/24 History Allergies Allergy/AdvReac Type Severity Reaction Status Date / Time No Known Allergies Allergy Verified 08/17/24 08:33 Physical Exam Vitals: Vital Signs Temp Pulse Pulse Resp BP BP Pulse Ox 08/17/24 16:58 97.9 F 109 H 16 170/90 98 08/17/24 16:35 100 18 149/87 100 08/17/24 16:10 107 H 18 153/86 96 08/17/24 15:10 99 16 171/94 97 08/17/24 14:40 95 16 161/93 98 08/17/24 14:10 91 16 160/84 97 08/17/24 13:55 87 16 176/88 99 08/17/24 13:40 88 16 172/88 98 08/17/24 13:25 83 16 147/87 97 08/17/24 13:10 74 16 146/82 100 08/17/24 12:55 75 16 148/85 97 08/17/24 12:40 72 16 145/81 97 08/17/24 12:25 69 16 120/71 97 08/17/24 12:10 97.7 F 73 18 106/71 97 08/17/24 09:27 76 16 143/79 100 08/17/24 08:37 98.3 F 80 16 172/85 95 Intake and Output 08/17/24 08/17/24 08/17/24 06:59 14:59 22:59 Intake Total 1251 400 Output Total 50 1200 Balance 1201 -800 Intake: IV 1251 400 Output: Urine 1200 Estimated Blood Loss 50
[2024-08-17] MEDS: SENNOSIDES-DOCUSATE SODIUM 1 EACH TAB PO SCH (19:58)
[2024-08-17] MEDS: HYDROmorphone 1 MG/ML 1 ML SYRINGE IVP PRN (19:58)
[2024-08-17] MEDS: carvediloL 6.25 MG TAB PO SCH (19:58)
[2024-08-17] MEDS: hydrOXYzine pamoate 25 MG CAP PO PRN (23:21)
[2024-08-18 03:37] VITALS: RESP 16
--- NOTE | 2024-08-18 06:01 | P.PN ---
Progress Note - Text Adequate analgesia. No anesthetic complications.
[2024-08-18 08:30] LABS: Basophils # (A) 0.01 X 10*3/uL (0.00-0.10); Basophils % (A) 0.1 %; Eosinophils # (A) 0 X 10*3/uL (0.04-0.35); Eosinophils % (A) 0 %; HCT 33.3 % (39.6-50.0); HGB 11.3 g/dL (13.0-17.0); Lymphocytes # (A) 0.77 X 10*3/uL (0.90-5.00); Lymphocytes % (A) 7.5 %; MCH 32.9 pg (27.0-32.0); MCHC 33.9 g/dL (32.0-37.0); MCV 97.1 FL (80.0-97.0); Mean Platelet Volume 10.9 FL (9.5-12.2); Monocytes # (A) 0.72 X 10*3/uL (0.20-1.00); NRBC Per 100 WBC 0 X 10*3/uL (0.00-0.01); Neutrophils % (A) 85.1 %; Platelet Count 147 X 10*3/uL (140-440); RBC 3.43 X 10*6/uL (4.40-5.60); RDW 12.9 % (11.5-14.5); WBC 10.33 X 10*3/uL (4.50-10.00)
[2024-08-18 08:46] LABS: BUN/Creat Ratio 12.42 Ratio (12.00-20.00); Blood Urea Nitrogen 14.9 mg/dL (9.0-27.0); Calcium 9.1 mg/dL (8.7-10.3); Carbon Dioxide 20.6 mmol/L (21.6-31.8); Chloride 103 mmol/L (96-109); Glucose 160 mg/dL (70-110); Potassium 3.6 mmol/L (3.5-5.5); Sodium 141 mmol/L (135-145)
[2024-08-18 08:47] LABS: Magnesium 1.4 mg/dL (1.5-2.4)
[2024-08-18 09:21] VITALS: BP 173/92; PULSE 84; TEMP 97.8
--- NOTE | 2024-08-18 10:15 | P.PN ---
Subjective Progress Note Date: 08/18/24 Principal diagnosis: Status post right total knee arthroplasty Patient evaluated at bedside today, he is resting comfortably, his is present at bedside. Patient did very well with physical therapy with ambulating the stairs. His pain is well-controlled with current medications. He denies headaches, lightheadedness, chest pain or shortness of breath Objective - Vital Signs Vital signs: Vital Signs Temp 97.8 F 08/18/24 07:28 Pulse 84 08/18/24 07:28 Resp 16 08/18/24 07:28 BP 173/92 08/18/24 07:28 Pulse Ox 99 08/18/24 07:28 FiO2 Intake & Output 08/17/24 08/18/24 08/18/24 18:59 06:59 18:59 Intake Total 1651 Output Total 1250 Balance 401 Intake: IV 1651 Output: Urine 1200 Estimated Blood Loss 50 Other: Voiding Method Toilet # Voids 1 2 - Exam Right lower extremity: Incision is clean, dry, and intact. The exofin fusion tape is in good condition. There is minimal soft tissue swelling and ecchymosis surrounding the medial and lateral aspects of the incision. Calf is soft, no tenderness with palpation. Plantar flexion, dorsiflexion, EHL, FHL are intact. Sensory exam to light touch throughout the extremity is intact, dorsal pedis pulses 2+. - Labs CBC & Chem 7: 08/18/24 02:52 08/18/24 02:52 Labs: Abnormal Lab Results - Last 24 Hours (Table) 08/18/24 08/18/24 Range/Units 02:52 02:52 WBC 10.33 H (4.50-10.00) X 10*3/uL RBC 3.43 L (4.40-5.60) X 10*6/uL Hgb 11.3 L (13.0-17.0) g/dL Hct 33.3 L (39.6-50.0) % MCV 97.1 H (80.0-97.0) FL MCH 32.9 H (27.0-32.0) pg Neutrophils # 8.80 H (1.80-7.70) X 10*3/uL Lymphocytes # 0.77 L (0.90-5.00) X 10*3/uL Eosinophils # 0 L (0.04-0.35) X 10*3/uL Carbon Dioxide 20.6 L (21.6-31.8) mmol/L Anion Gap 17.40 H (4.00-12.00) mmol/L Glucose 160 H (70-110) mg/dL Magnesium 1.4 L (1.5-2.4) mg/dL Assessment and Plan Assessment: Postoperative day #1 status post right total knee arthroplasty Plan: Pain control, plan for discharge home on [place] 7.5 mg / 325 mg. Will also prescribe stool softeners DVT prophylaxis, patient does have Eliquis leftover from his total hip replacement earlier this year, he will finish up that prescription and then switch to the aspirin 81 mg twice a day Wound care instructions discussed, this to include bandage changes, icing elevating and showering Home PT/nursing after discharge Medical recommendations appreciated Discharge planning: Patient stable for discharge home today Time with Patient: Less than 30
--- NOTE | 2024-08-18 10:18 | P.DS ---
Providers Date of admission: 08/17/2024 Expected date of discharge: 08/18/24 Attending physician: José Rodriguez Consults: 08/17/24 11:54 Consult Physician Routine Consulting Provider: Yoli Dave Consult Reason/Comments: Medical management s/p right total knee arthroplasty Do you want consulting provider notified?: Yes Primary care physician: [facility] Hospital Course: Date of admission: 08/17/2024 Date of discharge: 08/18/2024 Admission diagnosis: Status post right total knee arthroplasty Discharge diagnosis: Same Attending physician: Dr. Rodriguez Surgical procedures: Right total knee arthroplasty Brief history: Patient is a 64-year-old male with a history of progressive primary right knee osteoarthritis. At this point patient has failed conservative treatment measures and has opted to proceed with a elective right total knee arthroplasty. Hospital course: Details of patient's surgery can be found in operative report. Patient tolerated the procedure well and was subsequently transported to orthopedic floor. Patient's orthopeidc and medical care was provided daily. Patient had daily laboratory tests performed for evaluation of overall blood cou nts. Patient had daily physical therapy to include strengthening range of motion as well as education with walker ambulation. Patient was treated with Xarelto for their postoperative DVT prophylaxis during their inpatient stay. Patient was noted to have a relatively uneventful postoperative course. Patient reported satisfactory pain control with oral pain medications by postoperative day 0. Patient showed satisfactory progress with physical therapy. Patient moved steadily through the program and had no difficulty meeting the goals by postoperative day 1. Given patient's otherwise satisfactory course and having met physical therapy goals, plan is to discharge patient home on postoperative day 1. Discharge condition/disposition: Patient will be discharged home in stable condition. Discharge medications: Instructions are given on resumption of patient's normal daily medications per primary care recommendation, in addition patient will be prescribed [place] 7.5 mg / 325 mg, aspirin 81 mg, senna S. Discharge instructions: 1. Wound care and infection precautions, keep incision dry and covered while showering, no lotions, creams, moisturizers. No soaking, tubs, pools, hottubs. Do not scrub over the incision. 2. Weight-bear as tolerated with walker / cane until follow-up. 3. Ice and elevate when necessary. Do not exceed 20 minutes per hour with ice pack. 4. Utilize compression sleeve until seen at first follow up appointment. 5. Visiting nursing care. 6. Home physical therapy including home CPM. 7. Pain meds and anticoagulants per prescription. 8. Pain medication has potential to cause constipation. Increase oral fluid and fiber intake. Contact primary care provider if you have not had a bowel movement within 48 hours after discharge 9. No anti-inflammatory medication until discussed at first post operative visit, this including Motrin, Aleve, Mobic, Diclofenac. 10. Follow up in office at 2 weeks postop with Kareem Olivier PA-C/[facility] 11. Follow up with your primary care doctor 7-10 days after discharge. 12. Contact [facility] with any questions, . Procedures: Right total knee arthroplasty Patient Condition at Discharge: Good Plan - Discharge Summary Discharge Rx Participant: No New Discharge Prescriptions: New Aspirin [Adult Low Dose Aspirin EC] 81 mg PO BID #60 tab HYDROcodone/APAP 7.5-325MG [[place] 7.5] 1 each PO Q4HR PRN #42 tab PRN Reason: Pain Sennosides/Docusate Sodium [Senna-S 8.6-50 mg Tablet] 2 each PO DAILY PRN #30 tablet PRN Reason: Constipation Continue Aspirin [Adult Low Dose Aspirin EC] 81 mg PO DAILY Omeprazole Magnesium [PriLOSEC OTC] 20 mg PO DAILY Multivitamins, Thera [Multivitamin (formulary)] 1 tab PO DAILY Levothyroxine Sodium [Synthroid] 25 mcg PO DAILY Losartan Potassium [Cozaar] 100 mg PO DAILY amLODIPine [Norvasc] 10 mg PO DAILY carvediloL [Coreg] 6.25 mg PO BID No Action Ibuprofen [Motrin] 800 mg PO Q6H PRN PRN Reason: Pain Discharge Medication List Aspirin [Adult Low Dose Aspirin EC] 81 mg PO DAILY 01/01/18 [History] Multivitamins, Thera [Multivitamin (formulary)] 1 tab PO DAILY 09/11/20 [History] Omeprazole Magnesium [PriLOSEC OTC] 20 mg PO DAILY 09/11/20 [History] Ibuprofen [Motrin] 800 mg PO Q6H PRN 08/04/23 [History] Levothyroxine Sodium [Synthroid] 25 mcg PO DAILY 08/04/23 [History] Losartan Potassium [Cozaar] 100 mg PO DAILY 08/04/23 [History] amLODIPine [Norvasc] 10 mg PO DAILY 08/04/23 [History] carvediloL [Coreg] 6.25 mg PO BID 08/04/23 [History] Aspirin [Adult Low Dose Aspirin EC] 81 mg PO BID #60 tab 08/18/24 [Rx] HYDROcodone/APAP 7.5-325MG [[place] 7.5] 1 each PO Q4HR PRN #42 tab 08/18/24 [Rx] Sennosides/Docusate Sodium [Senna-S 8.6-50 mg Tablet] 2 each PO DAILY PRN #30 tablet 08/18/24 [Rx] Follow up Appointment(s)/Referral(s): [facility] Workman, PAC [PHYSICIAN SOX ANALYST] - 2 Weeks Patient Instructions/Handouts: *Surgery [facility] - On-Q Pain Pump Discharge Instruc tions, Knee Replacement (GEN) Activity/Diet/Wound Care/Special Instructions: Orthopedic Discharge Instructions: 1. Wound care and infection precautions, keep incision dry and covered while showering, no lotions, creams, moisturizers. No soaking, pools, hot tubs. Do not scrub over incision. 2. Weight-bear as tolerated with walker / cane until follow-up. 3. Ice and elevate when necessary. Do not exceed 20 minutes per hour with ice pack. 4. Utilize compression sleeve until seen at first follow up appointment. 5. Pain meds and anticoagulants per prescription. 6. Pain medication has potential to cause constipation. Increase oral fluid and fiber intake. Contact primary care provider if you have not had a bowel movement within 48 hours after discharge. 7. No anti-inflammatory medication until discussed at first post operative visit, this including Motrin, Aleve, Mobic, Diclofenac. 8. Follow up in office at 2 weeks postop with Kareem Olivier PA-C / Alida Hernandez 9. Follow up with your primary care doctor 7-10 days after discharge. 10. Contact [facility] with any questions, . Keep incision clean, dry, intact. While showering, cover incision with Saran wrap. Keep fusion tape on until follow-up appointment office in 2 weeks Discharge Disposition: HOME WITH HOME HEALTH SERVICES
[2024-08-18] MEDS: LOSARTAN 50 MG TAB PO SCH (10:22)
[2024-08-18] MEDS: PANTOPRAZOLE 40 MG TABLET PO SCH (10:22)
[2024-08-18] MEDS: LEVOTHYROXINE 25 MCG TAB PO SCH (10:22)
[2024-08-18] MEDS: RIVAROXABAN 10 MG TAB PO SCH (10:22)
[2024-08-18] MEDS: amLODIPine 10 MG TAB PO SCH (10:23)
[2024-08-18] MEDS: MULTIVITAMINS, THERA 1 EACH TAB PO SCH (10:23)
--- NOTE | 2024-08-18 15:34 | P.PN ---
Subjective Progress Note Date: 08/18/24 Hospital Course: Patient is a very pleasant 64-year-old male with a past medical history of CAD, hypertension, aortic aneurysm, pulmonary nodule, hypothyroidism, and osteoarthritis. He is currently admitted under orthopedic surgery team status post elective right total knee arthroplasty and removal of hardware from right distal femur/right proximal tibiainterference screws. Surgical procedure was completed by Dr. Rodriguez. We were consulted for medical management throughout hospitalization. Physical exam: Patient seen and fully evaluated at bedside this morning. He was sitting up in the bed and reports ready to go home. Patient states he is doing well and he denies having any questions, needs, or complaints. Vital signs reviewed and stable. General: Nontoxic, no distress and appears stated age. Derm: Skin warm and dry, normal coloration for ethnicity. Head: Atraumatic, normocephalic and symmetric. Eyes: EOM's intact, no lid lag, and anicteric sclera Mouth: no lip lesions, mucus membranes moist Cardiovascular: regular rate and rhythm with normal S1S2, no murmur, positive posterior tibial pulses bilaterally, and cap refill < 2 seconds. Lungs: Respirations even, regular, and unlabored on room air. Lungs CTA bilaterally, no rhonchi, no rales, no wheezing, and no accessory muscle usage. Abdominal: soft, nontender to palpation, no guarding, no appreciable organomegaly Ext: No gross muscle atrophy, no edema, no contractures. Movement and sensation intact. Postoperative dressing/Chevy wrap in place to right knee. Neuro: Speech clear, face symmetrical and CN II-XII grossly intact with no noted focal neuro deficits Psych: Alert and oriented to person, place, time, and situation. Appropriate and pleasant affect. Assessment and Plan of Care: Status post right total knee arthroplasty with removal of hardware from right distal femur/right proximal tibiainterference screws Management per primary admitting orthopedic surgery team including DVT prophylaxis, pain management, wound/dressing management, weightbearing, and PT/OT. Sinus tachycardia, resolved -Patient with postoperative sinus tachycardia currently 110s. He denies feeling excessive pain or discomfort. He is also hypertensive at 170/90. Patient does take carvedilol 6.25 mg twice daily and does report taking his morning medication. Patient states history of dysrhythmia. -EKG revealed normal sinus rhythm 72 bpm tubular statement showed no signs of acute ischemia. -Telemetry monitoring Postoperative blood loss anemia -Expected and stable finding. Preoperative hemoglobin of 13.5 with postoperative hemoglobin of 11.3. No need for transfusion or further intervention at this time. Hypertension -Patient to resume amlodipine 10 mg daily, losartan 100 mg daily and carvedilol 6.25 mg twice daily. Hypothyroidism -Continue daily medication regimen with levothyroxine 25 mcg daily. History of aortic aneurysm -Patient follows with Dr. Chavez for monitoring/surveillance. History of pulmonary nodule -Patient to continue to follow with [facility] for monitoring/surveillance. Data and imaging reviewed: -Vital signs reviewed. Blood pressure 161/64, heart rate 91, respiratory rate 16, temp 98.0 F, and SpO2 of 96% on room air. -Postoperative labs reviewed. CBC showing mild leukocytosis with WBC count of 10.33 and stable postoperative blood loss anemia with hemoglobin of 11.3, preoperative hemoglobin obtained 08/05/2024 resulting at 13.5. BMP showing elevated anion gap of 17.40 otherwise normal findings.. -Discussed magnesium of 1.4 with patient's , Dorcas. Offered to send prescription for magnesium oxide 400 mg daily however she states they have [id number] magnesium sulfate 200 mg tablets and patient was instructed to take 2 tablets daily for the next week. Thank you for allowing us to participate in the care of this pleasant patient. Do not hesitate to contact us with questions. Someone can be reached from the [facility] hospitalist group all hours of the day at [phone] or via perfect serve. Patient was seen independently by Nurse Practitioner. This document was prepared using [employer] dictation software. Please allow for errors in courier while rare they do occur. Torres Cobos NP rendered care for this patient independently, reviewed the findings and plan as documented in the note above and agree with plan. I did not physically speak with or examine the patient on this date. Objective - Vital Signs Vital signs: Vital Signs Temp 98.0 F 08/18/24 02:27 Pulse 91 08/18/24 02:27 Resp 16 08/18/24 02:27 BP 161/64 08/18/24 02:27 Pulse Ox 96 08/18/24 02:27 FiO2 Intake & Output 08/17/24 08/18/24 08/18/24 18:59 06:59 18:59 Intake Total 1651 Output Total 1250 Balance 401 Intake: IV 1651 Output: Urine 1200 Estimated Blood Loss 50 Other: Voiding Method Toilet # Voids 1 2 - Labs CBC & Chem 7: 08/18/24 02:52 08/18/24 02:52 Labs: Abnormal Lab Results - Last 24 Hours (Table) 08/18/24 Range/Units 02:52 WBC 10.33 H (4.50-10.00) X 10*3/uL RBC 3.43 L (4.40-5.60) X 10*6/uL Hgb 11.3 L (13.0-17.0) g/dL Hct 33.3 L (39.6-50.0) % MCV 97.1 H (80.0-97.0) FL MCH 32.9 H (27.0-32.0) pg Neutrophils # 8.80 H (1.80-7.70) X 10*3/uL Lymphocytes # 0.77 L (0.90-5.00) X 10*3/uL Eosinophils # 0 L (0.04-0.35) X 10*3/uL
== END 2024-08-18 13:44 | disposition home health service (06) ==
LOC: OR 08:22 → 4SSUR 12:03 → OR 08-18 13:44
PROVIDERS: ATTEND Orthopaedic Surgery
DX: M17.11 Unilateral primary osteoarthritis, right knee (principal); G89.18 Other acute postprocedural pain; I97.191 Other postprocedural cardiac functional disturbances following other surgery; R00.0 Tachycardia, unspecified; D62 Acute posthemorrhagic anemia; I10 Essential (primary) hypertension; I25.119 Atherosclerotic heart disease of native coronary artery with unspecified angina pectoris; E03.9 Hypothyroidism, unspecified; I71.9 Aortic aneurysm of unspecified site, without rupture; E78.5 Hyperlipidemia, unspecified; J44.9 Chronic obstructive pulmonary disease, unspecified; K21.9 Gastro-esophageal reflux disease without esophagitis; R91.1 Solitary pulmonary nodule; D72.829 Elevated white blood cell count, unspecified; Z79.82 Long term (current) use of aspirin; Z79.890 Hormone replacement therapy; Z79.899 Other long term (current) drug therapy; Z87.891 Personal history of nicotine dependence; Z96.641 Presence of right artificial hip joint
CPT/HCPCS: 27447; 97161; 64999; 64448; 80048; 83735; 85025; 73560; C1713 ×2; C1776; C1751; J2250; J1100; J0690 ×3; J2405; J3010; J1171 ×3; J2795; J2704

== ENCOUNTER → 2025-01-22 | Outpatient (CLI) | payer OTHER | END | disposition home or self-care (01) | LOC: LABWHC1 10:53 | PROVIDERS: ATTEND Orthopaedic Surgery | DX: Z01.812 Encounter for preprocedural laboratory examination (principal); Z22.322 Carrier or suspected carrier of Methicillin resistant Staphylococcus aureus; M17.12 Unilateral primary osteoarthritis, left knee | CPT/HCPCS: 87070 ==

== ENCOUNTER 2025-02-01 11:02 | Day surgery (SDC) | payer OTHER ==
[2025-01-26 13:16] VITALS: BMI 28.5
--- NOTE | 2025-01-31 09:11 | P.HPOR ---
History of Present Illness H&P Date: 01/31/25 Chief Complaint: Left knee pain The patient is a 64-year-old male who presents with progressive left knee pain for the past year. He is having pain with any weightbearing activities. He notes intermittent swelling and giving way. He has tried medications in addition to an injection and bracing without much relief. Review of Systems Per HPI Past Medical History Past Medical History: Chest Pain / Angina, COPD, GERD/Reflux, Hyperlipidemia, Hypertension, Osteoarthritis (OA), Thyroid Disorder Additional Past Medical History / Comment(s): irregular heart rate, heart murmur, hx. aortic aneurysm, left shoulder will need surgery on it soon History of Any Multi-Drug Resistant Organisms: None Reported Past Surgical History: Heart Catheterization, Joint Replacement, Orthopedic Surgery Additional Past Surgical History / Comment(s): harpreet knees ACL repair, rt hip replaced. RT hand surgery duptryn's contracture, RT TKA, Past Anesthesia/Blood Transfusion Reactions: No Reported Reaction Smoking Status: Former smoker - Past Family History Brother(s) Family Medical History: Cancer Additional Family Medical History / Comment(s): 2 brothers with aortic aneurysm, 1 with brain cancer Mother Family Medical History: Cancer Additional Family Medical History / Comment(s): lung cancer Medications and Allergies Home Medications Medication Instructions Recorded Confirmed Type Aspirin [Adult Low Dose Aspirin EC] 81 mg PO DAILY 01/01/18 01/26/25 History Multivitamins, Thera [Multivitamin 1 tab PO DAILY 09/11/20 01/26/25 History (formulary)] Omeprazole Magnesium [PriLOSEC OTC] 20 mg PO DAILY 09/11/20 01/26/25 History Ibuprofen [Motrin] 800 mg PO Q6H PRN 08/04/23 01/26/25 History Levothyroxine Sodium [Synthroid] 25 mcg PO DAILY 08/04/23 01/26/25 History Losartan Potassium [Cozaar] 100 mg PO DAILY 08/04/23 01/26/25 History amLODIPine [Norvasc] 10 mg PO DAILY 08/04/23 01/26/25 History Magnesium Oxide [Mag-Ox] 400 mg PO DAILY 30 Days #30 tablet 08/18/24 01/26/25 Rx carvediloL [Carvedilol] 12.5 mg PO BID 01/26/25 01/26/25 History Allergies Allergy/AdvReac Type Severity Reaction Status Date / Time No Known Allergies Allergy Verified 01/26/25 12:55 Physical Examination - Knee left Appearance: effusion Varus alignment in stance: 10 degrees Tenderness with palpation: anterior, medial Pain: throughout ROM Gait: limping ROM: extension: -10 degrees ROM: flexion: 100 degrees Crepitus with motion: Yes Strength: extension: 5/5 Strength: flexion: 5/5 Meniscal tests: medial meniscal tests: positive, medial joint line pain: positive Results The patient is a well-developed well-nourished male approximately 6 foot tall, 213 pounds of endomorphic habitus. HEENT exam is nonfocal, neck is supple. He has painless passive motion of the left hip. Straight leg raise is negative. He is tender about the medial joint line of the left knee. Collaterals are stable, Lelia's 2+, Rita's is equivocal. His distal neurovascular exam appears intact in the left lower extremity. He does have an antalgic gait pattern. - Diagnostic results Knee x-ray: image reviewed (X-rays of the left knee obtained the office show severe tricompartmental osteoarthrosis with subchondral sclerosis and [id number] changes. Previous distal femoral and proximal tibial hardware is noted.) Assessment and Plan Assessment: Left knee severe tricompartmental osteoarthrosis History of left ACL reconstruction with retained hardware Plan: I talked to the patient at length regarding his condition along with treatment options. At this point is quite symptomatic having pain and mechanical symptoms related to his left knee osteoarthrosis despite conservative measures. After a thorough discussion he opts to proceed with surgery. We will plan to proceed with a left total knee arthroplasty. We will also potentially perform hardware removal. Risks and benefits were discussed at length in layman's terms. We will institute DVT prophylaxis postoperatively.
[~2025-02-01 11:02] MED LIST changes: +HYDROmorphone 0.5 MG/0.5 ML SYRINGE IVP PRN; +LIDOCAINE 1% (10MG/ML) FOR IV START INTRADERMA PRN
[2025-02-01] MEDS: LACTATED RINGERS 1,000 ML IV SCH (11:54)
[2025-02-01] MEDS: ACETAMINOPHEN TAB 500 MG TAB PO PRN (11:55)
[2025-02-01] MEDS: MELOXICAM 7.5 MG TAB PO PRN (11:56)
[2025-02-01] MEDS: DEXAMETHASONE SOD PHOSPHATE 4 MG/ML 1 ML VIAL IV ONE (11:56)
[2025-02-01] MEDS: ONDANSETRON 4 MG/2 ML VIAL IVP ONE (11:56)
[2025-02-01] MEDS: MIDAZOLAM 2 MG/2 ML VIAL IV PRN (12:14)
[2025-02-01] MEDS: IV FLUID CONTINUATION 1,000 ML IV ONE (12:41)
[2025-02-01] MEDS ORDERED: GLYCOPYRROLATE 0.2 MG/ML 2 ML VIAL ONE (13:08)
[2025-02-01] MEDS ORDERED: fentaNYL (PF) 50 MCG/ML 2 ML AMP ONE (13:08)
[2025-02-01] MEDS ORDERED: DEXAMETHASONE SOD PHOSPHATE 4 MG/ML 1 ML VIAL ONE (13:08)
[2025-02-01] MEDS ORDERED: KETAMINE HCL IN 0.9 % NACL 50 MG/5 ML SYRINGE ONE (13:08)
[2025-02-01] MEDS ORDERED: SODIUM CHLORIDE 0.9% (PF) 10 ML VIAL ONE (13:08)
[2025-02-01] MEDS ORDERED: ROPIVACAINE 5 MG/ML 30 ML VIAL ONE (13:08)
[2025-02-01] MEDS ORDERED: TRANEXAMIC 1,000 MG/100ML-NACL PREMIX BAG ONE (13:08)
[2025-02-01] MEDS ORDERED: MIDAZOLAM 2 MG/2 ML VIAL ONE (13:08)
[2025-02-01] MEDS ORDERED: PROPOFOL 10 MG/ML 20 ML VIAL IV ONE (13:08)
[2025-02-01] MEDS ORDERED: PHENYLEPHRINE-0.9% NACL SYG 1,000 MCG/10 ML SYRINGE ONE (13:08)
[2025-02-01] MEDS: ceFAZolin 2 GM in DEXTROSE 5% IN WATER 50 ML IVPB PRN (13:11)
--- NOTE | 2025-02-01 13:26 | P.ANPRN ---
Procedure Note - Anesthesia - Nerve Block Performed Left Yesenia Single Date of Procedure: 02/01/25 Procedure Start Time: 12:13 Procedure Stop Time: 12:21 Indication: Acute Post-Operative Pain, Requested by Surgeon Sedation Type: Sedate with meaningful contact maintained Preparation: Sterile Prep Position: Supine Needle Gauge: 21 Ultrasound used to visualize needle placement: Yes Ultrasound used to observe medication spread: Yes Injectate: 0.5% Ropivacaine (see comment for volume) (10 mls of Ropivacine 0.5% +10 mls of NS+ 4 mg of Decadron) Blood Aspirated: No Pain Paresthesia on Injection Noted: No Resistance on Injection: Normal Image Stored and Saved: Yes Events: Uneventful and Well Tolerated
--- NOTE | 2025-02-01 13:28 | P.ANPRN ---
Procedure Note - Anesthesia - Nerve Block Performed Left Adductor Canal Infusion Date of Procedure: 02/01/25 Procedure Start Time: 12:22 Procedure Stop Time: 12:32 Indication: Acute Post-Operative Pain, Requested by Surgeon Sedation Type: Sedate with meaningful contact maintained Preparation: Sterile Prep Position: Supine Catheter: Indwelling Needle Types: Pajunk Needle Gauge: 18 Ultrasound used to visualize needle placement: Yes Ultrasound used to observe medication spread: Yes Injectate: 0.5% Ropivacaine (see comment for volume) (20 mls) Blood Aspirated: No Pain Paresthesia on Injection Noted: No Resistance on Injection: Normal Image Stored and Saved: Yes Events: Uneventful and Well Tolerated
[2025-02-01] MEDS: ceFAZolin 1,000 MG in SODIUM CHLORIDE 0.9% 1,000 ML IRRIGATION ONE (13:38)
[2025-02-01] MEDS: LACTATED RINGERS 1,000 ML IV ONE (14:04)
[2025-02-01] MEDS ORDERED: ONDANSETRON 4 MG/2 ML VIAL IVP PRN (14:51)
[2025-02-01] MEDS ORDERED: HYDROcodone/APAP 5-325MG 1 EACH TAB PO PRN (14:51)
[2025-02-01] MEDS ORDERED: NALOXONE 0.4 MG/ML 1 ML VIAL IV PRN (14:51)
[2025-02-01] MEDS ORDERED: MAGNESIUM HYDROXIDE 2,400 MG/30 ML CUP PO PRN (14:51)
--- NOTE | 2025-02-01 15:22 | P.OP ---
Date of Procedure: 02/01/25 Preoperative Diagnosis: Left knee severe tricompartmental osteoarthrosis Left knee retained hardware proximal tibia Postoperative Diagnosis: Same Procedure(s) Performed: Left total knee arthroplastycementedposterior stabilized Removal hardware left proximal tibia Implants: DePuy attune size 7 cemented femoral component, size 7 cemented tibial component, 10 mm articular surface, 41 mm cemented patellar component. There is a posterior stabilized implant. Anesthesia: regional, spinal Surgeon: José Rodriguez Pump Tester #1: Mt Workman Estimated Blood Loss (ml): 50 Pathology: none sent Condition: stable Disposition: PACU Indications for Procedure: The patient is a 64-year-old male who presents with progressive left knee pain secondary to osteoarthrosis despite conservative measures. After a thorough discussion of the risks and benefits of operative intervention versus continued conservative measures, he opts to proceed with surgery. Specific risks of surgery to include infection, neurovascular treat, development of blood clots, fracture, possible component loosening/failure and possible need for subsequent procedures was discussed. Informed consent was obtained. Operative Findings: As below Description of Procedure: The patient was brought to the operating room, and after induction of spinal anesthesia the left lower extremity was prepped and draped in a normal fashion. The tourniquet was inflated to 270 mm marker. A longitudinal incision extending 3 finger breaths above the superior pole of patella extending to the medial aspect the tibial tubercle was then made. The skin and subcutaneous tissues were divided sharply. Electrocautery was used for hemostasis. A medial parapatellar arthrotomy was performed. The medial soft tissues to include the superficial and deep portions of the medial collateral ligament were elevated subperiosteally. The patella was everted. A portion of the retropatellar fat pad was excised sharply. The anterior cruciate ligament was sacrificed. Blunt retractors were placed. A starting hole was made in the distal femur 1 cm anterior to the posterior cruciate ligament origin. An intramedullary femoral guide was then inserted planning on 5 valgus distal cut with 9 mm distal resection. The cutting block was pinned in place. The distal cut was then made. The posterior referencing sizing guide was utilized. I felt size 7 was most appropriate. 3 of external rotation was built into the system and verified off the trans-epicondylar axis and the posterior condyles. The cutting block was pinned in place. The anterior, posterior, and chamfer cuts then made. Bone fragments were removed. The intercondylar guide was placed and the notch cut was made with a sagittal saw. The bone block was removed in one fragment. The trial component was then placed. There is good anterior to posterior and medial to lateral fit. The distal peg holes were drilled. The trial component was removed. Attention was then paid towards preparing the proximal tibia. The retained proximal medial tibial staple was then removed. An extra medullary guide was utilized in line with the tibial shaft and second metatarsal distally. I planned on 2 mm resection from the medial compartment. The cutting block was pinned in place. The proximal tibial cut was then made. The bone was removed in one fragment. The remnants of the medial and lateral menisci were excised at the capsular junction with electrocautery. The tibia sized most appropriately at size 7. The trial femoral and tibial components were placed along with a 10 mm articular surface. I was able to obtain full flexion and extension with internal and external rotation. After several flexion and extension cycles, the tibial rotation was marked with electrocautery line with the medial one third of the tibial tubercle. Attention was then paid towards preparing the patella. A patella reamer was utilized taking stem to 14 mm of bone stock. A good flush cut was made. The patella sized most appropriately 41 mm. The peg holes were drilled. The trial components placed. I had good patellofemoral tracking with no hands technique. The trial components were then removed. The tibia was prepared in the appropriate rotation with appropriate drill and keel punch. The posterior osteophytes were removed with a curved osteotome. The flexion and extension gaps were checked and felt to be symmetric at 10 mm. A trial components were then removed. The bony surfaces were prepared with pulsatile lavage and dried. The tibial component was then cemented place was fully seated. Excess cement was removed. The femoral component cemented place and was fully seated. Excess cement was removed. The trial 10 mm articular surface was placed and the knee was put in full extension. The patella component was cemented place. After the cement had sufficiently hardened, the knee was again taken through a range of motion. Again I was able to obtain full flexion and extension with varus and valgus stress. The trial 10 mm articular surface was removed and the final one inserted. This was fully seated. Care was taken to avoid any soft tissue interposition. Pulsatile lavage was again utilized. The medial parapatellar arthrotomy was closed with #2 Ethibond suture. The tourniquet was deflated with approximately 60 minutes total tourniquet time. Final hemostasis was obtained with the cautery. There was minimal bleeding therefore a deep drain was not placed. The subcutaneous tissues were reapproximated with interrupted 2-0 Vicryl sutures. The skin was reapproximated with 3-0 subcuticular strata fix suture. Skin tape and adhesive was applied. A sterile dressing was applied. The patient was awoken from sedation and trans ferred to recovery room in good condition. Blood loss was estimated at 50 mL. No complications were incurred. Sponge and needle counts were correct at the end of the case. Mt GAONA assisted during the major components of this case to include exposure, bone resection, implantation, and closure.
--- NOTE | 2025-02-01 15:37 | XR ---
EXAMINATION TYPE: XR knee limited LT DATE OF EXAM: 02/01/2025 CLINICAL HISTORY: Postoperative evaluation Two views of the left knee are submitted. Identified are changes of total knee arthroplasty with fem oral and tibial components appearing well seated. Postsurgical soft tissue changes are noted. Align ment is anatomic. [facility], , 02/01/2025 3:34 PM
[2025-02-01] MEDS: ROPIVACAINE 1,100 MG, SODIUM CHLORIDE 0.9% 500 ML 330 ML, EMPTY PAIN BALL 1 EACH MISCELLANE PRN (15:45)
[2025-02-01] MEDS: HYDROmorphone 2 MG/ML 1 ML SYRINGE IVP PRN (17:16)
[2025-02-01] MEDS: HYDROcodone/APAP 7.5-325MG 1 EACH TAB PO PRN (17:47)
[2025-02-01] MEDS ORDERED: HYDROmorphone 1 MG/ML 1 ML SYRINGE IVP PRN (20:28)
[2025-02-01] MEDS: SENNOSIDES-DOCUSATE SODIUM 1 EACH TAB PO SCH (20:38)
[2025-02-01] MEDS: ceFAZolin 2 GM in DEXTROSE 5% IN WATER 50 ML IVPB SCH (20:38)
[2025-02-01] MEDS: carvediloL 12.5 MG TAB PO SCH (20:38)
[2025-02-01] MEDS: HYDROmorphone 0.5 MG/0.5 ML SYRINGE IVP PRN (20:39)
[2025-02-01 20:44] LABS: Basophils # (A) 0.02 10*3/uL (0.00-0.10); Basophils % (A) 0.2 %; HCT 35.7 % (39.6-50.0); HGB 12.7 g/dL (13.0-17.0); Lymphocytes % (A) 7.2 %; MCH 33.2 pg (27.0-32.0); MCHC 35.6 g/dL (32.0-37.0); MCV 93.5 fL (80.0-97.0); Mean Platelet Volume 10.2 fL (9.5-12.2); Monocytes # (A) 0.26 10*3/uL (0.20-1.00); Monocytes % (A) 2.7 %; Neutrophils # (A) 8.76 10*3/uL (1.80-7.70); Neutrophils % (A) 89.6 %; Platelet Count 187 10*3/uL (140-440); RBC 3.82 10*6/uL (4.40-5.60); RDW 12.1 % (11.5-14.5); WBC 9.77 10*3/uL (4.50-10.00)
[2025-02-01 20:56] LABS: AST 40 U/L (17-59); African American GFR (CKD) >90 (>60 ml/min/1.73 sqM); Albumin 4.3 g/dL (3.5-5.0); Albumin/Globulin Ratio 1.4; Alkaline Phosphatase 61 U/L (38-126); Anion Gap 15 mmol/L; Blood Urea Nitrogen 19 mg/dL (9-20); Calcium 9.5 mg/dL (8.4-10.2); Carbon Dioxide 19 mmol/L (22-30); Chloride 103 mmol/L (98-107); Glucose 192 mg/dL (74-99); Non-African American GFR(CKD) 81 (>60 ml/min/1.73 sqM); Potassium 3.9 mmol/L (3.5-5.1); Sodium 137 mmol/L (137-145); Total Bilirubin 0.7 mg/dL (0.2-1.3); Total Protein 7.3 g/dL (6.3-8.2)
[2025-02-01 21:05] LABS: ALT 44 U/L (4-49)
--- NOTE | 2025-02-01 22:16 | P.CONS ---
History of Present Illness - Reason for Consult Consult date: 02/01/25 medical management Requesting physician: José Rodriguez - History of Present Illness Patient is a 64-year-old male with CAD, COPD (no home oxygen), GERD, hyperlipidemia, hypertension, osteoarthritis, hypothyroidism for medical evaluation status post left total knee arthroplasty. Patient has been having progressive left knee pain secondary to osteoarthritis and has failed conservative measures and decided to have the surgery for definitive treatment. Patient has reported that his pain is controlled with medications given. He has not passed flatus or BM but has been able to urinate. He has not been able to ambulate as of yet. He denied chest pain, shortness of breath, abdominal pain, focal weakness, numbness or tingling of the affected limb. Knee x-ray for postop eval shows changes of total knee arthroplasty with femoral and tibial components appearing well-seated with anatomy aligned. 98.2 Fahrenheit, NM 103, RR 17, BP 127/79, O2 saturation 95% on room air Review of systems: Pertinent positives and negatives as discussed in HPI, a complete review of systems was performed and all other systems are negative. Physical examination: Vital signs reviewed General: non toxic, no distress, appears at stated age, room air Derm: no unusual rashes/lesions, warm Head: atraumatic, normocephalic, symmetric Eyes: EOMI, anicteric sclera, pupils equal round reactive to light ENT: Nose and ears atraumatic Neck: No cervical lymphadenopathy, trachea midline, supple Mouth: no lip lesion, mucus membranes moist Cardiovascular: S1S2 reg, no murmur Lungs: CTA bilateral, no rhonchi, no rales, no accessory muscle use Abdominal: soft, nondistended, nontender to palpation, no guarding Ext: muscle strength 5 out of 5 in all extremities distally and proximally grossly, no gross muscle atrophy, no contractures, positive dorsalis pedis pulse bilateral, no edema, left lower extremity wrapped in compression bandage that is clean and dry, surrounding skin dry without erythema Neuro: CN II-XI grossly intact, no gross focal neuro deficits Psych: Alert, oriented, appropriate affect and mood Assessment/Plan: #. Chronic conditions: CAD, COPD (not on home oxygen), GERD, hyperlipidemia, hypertension, osteoarthritis, hypothyroidism - Resume home carvedilol 25 mg twice daily, amlodipine 20 mg p.o. daily, Cozaar 100 mg p.o. daily, Synthroid 25 mcg p.o. daily and aspirin 81 mg p.o. daily - Check CBC, CMP and TSH in the morning - Continue with incentive spirometry #. Status post left total knee arthroplasty - DVT prophylaxis and pain control be managed by primary surgical team We appreciate being part of this patient's care. Thank you for this consult. Aaliyah Rodriguez MD PGY-1/Emergency Manager Internal Medicine Dictation was produced using [employer] dictation software. please excuse any grammatical, word or spelling errors. I have seen and evaluated the patient today. I Discussed the case with the resident and agree with the resident's findings I edited the assessment and plan as necessary as documented in the resident's note. Past Medical History Past Medical History: Chest Pain / Angina, COPD, GERD/Reflux, Hyperlipidemia, Hypertension, Osteoarthritis (OA), Thyroid Disorder Additional Past Medical History / Comment(s): irregular heart rate, heart murmur, hx. aortic aneurysm, left shoulder will need surgery on it soon History of Any Multi-Drug Resistant Organisms: None Reported Past Surgical History: Heart Catheterization, Joint Replacement, Orthopedic Surgery Additional Past Surgical History / Comment(s): harpreet knees ACL repair, rt hip replaced. RT hand surgery duptryn's contracture, RT TKA, Past Anesthesia/Blood Transfusion Reactions: No Reported Reaction Past Psychological History: No Psychological Hx Reported Smoking Status: Former smoker Past Alcohol Use History: Occasional Additional Past Alcohol Use History / Comment(s): smoked 30 years 2 ppd quit for 10 years and in 2015 began smoking pipe, quit smoking December 2023 Past Drug Use History: None Reported - Past Family History Brother(s) Family Medical History: Cancer Additional Family Medical History / Comment(s): 2 brothers with aortic aneurysm, 1 with brain cancer Mother Family Medical History: Cancer Additional Family Medical History / Comment(s): lung cancer Medications and Allergies Home Medications Medication Instructions Recorded Confirmed Type Aspirin [Adult Low Dose Aspirin EC] 81 mg PO DAILY 01/01/18 01/26/25 History Multivitamins, Thera [Multivitamin 1 tab PO DAILY 09/11/20 01/26/25 History (formulary)] Omeprazole Magnesium [PriLOSEC OTC] 20 mg PO DAILY 09/11/20 01/26/25 History Ibuprofen [Motrin] 800 mg PO Q6H PRN 08/04/23 01/26/25 History Levothyroxine Sodium [Synthroid] 25 mcg PO DAILY 08/04/23 01/26/25 History Losartan Potassium [Cozaar] 100 mg PO DAILY 08/04/23 01/26/25 History amLODIPine [Norvasc] 10 mg PO DAILY 08/04/23 01/26/25 History Magnesium Oxide [Mag-Ox] 400 mg PO DAILY 30 Days #30 tablet 08/18/24 01/26/25 Rx carvediloL [Carvedilol] 25 mg PO BID 01/26/25 02/01/25 History Allergies Allergy/AdvReac Type Severity Reaction Status Date / Time No Known Allergies Allergy Verified 02/01/25 11:26 Physical Exam Vitals: Vital Signs Temp Pulse Resp BP Pulse Ox 02/01/25 18:53 98.2 F 103 H 17 127/79 95 02/01/25 17:50 92 148/90 97 02/01/25 17:35 96 131/89 96 02/01/25 17:20 92 137/82 99 02/01/25 17:05 82 149/83 98 02/01/25 16:50 98.1 F 78 16 142/85 98 02/01/25 16:27 74 16 142/80 99 02/01/25 16:12 79 16 122/70 97 02/01/25 15:57 74 16 118/65 97 02/01/25 15:42 70 16 118/65 98 02/01/25 15:27 80 16 103/67 97 02/01/25 15:12 97.4 F L 77 16 101/60 91 L 02/01/25 12:38 73 16 150/79 100 02/01/25 11:36 97.0 F L 73 16 175/87 97 Intake and Output 02/01/25 02/01/25 02/01/25 06:59 14:59 22:59 Intake Total 1351 150 Output Total 50 Balance 1301 150 Intake: IV 1351 150 Output: Estimated Blood Loss 50 Other: Weight 93.8 kg 93.8 kg Results CBC & Chem 7: 02/01/25 20:23 02/01/25 20:23
--- NOTE | 2025-02-02 06:36 | P.PN ---
Progress Note - Text Progress Note Date: 02/02/25 Postop day #1 status post left total knee replacement under spinal anesthesia. The patient had adductor canal catheter for pain control postoperatively. His pain is well-tolerated. The skin entry site of the catheter shows no signs of infection. Patient is doing well.
[2025-02-02] MEDS: hydrOXYzine pamoate 25 MG CAP PO PRN (06:54)
[2025-02-02] MEDS: LEVOTHYROXINE 25 MCG TAB PO SCH (06:55)
[2025-02-02] MEDS: PANTOPRAZOLE 40 MG TABLET PO SCH (06:55)
[2025-02-02 07:26] VITALS: BP 137/74; PULSE 82; RESP 18; TEMP 97.9
[2025-02-02] MEDS: LOSARTAN 50 MG TAB PO SCH (08:02)
[2025-02-02] MEDS: amLODIPine 10 MG TAB PO SCH (08:02)
[2025-02-02] MEDS: RIVAROXABAN 10 MG TAB PO SCH (08:02)
[2025-02-02 08:24] LABS: Basophils # (A) 0.01 X 10*3/uL (0.00-0.10); Basophils % (A) 0.1 %; Eosinophils # (A) 0 X 10*3/uL (0.04-0.35); Eosinophils % (A) 0 %; HCT 33.2 % (39.6-50.0); HGB 11.4 g/dL (13.0-17.0); Lymphocytes # (A) 0.87 X 10*3/uL (0.90-5.00); Lymphocytes % (A) 9.4 %; MCH 32.2 pg (27.0-32.0); MCHC 34.3 g/dL (32.0-37.0); MCV 93.8 FL (80.0-97.0); Mean Platelet Volume 10.6 FL (9.5-12.2); Monocytes # (A) 0.63 X 10*3/uL (0.20-1.00); Monocytes % (A) 6.8 %; NRBC Per 100 WBC 0 X 10*3/uL (0.00-0.01); Neutrophils # (A) 7.69 X 10*3/uL (1.80-7.70); Neutrophils % (A) 83.2 %; Platelet Count 184 X 10*3/uL (140-440); RBC 3.54 X 10*6/uL (4.40-5.60); RDW 12.4 % (11.5-14.5); WBC 9.25 X 10*3/uL (4.50-10.00)
[2025-02-02 08:40] LABS: ALT 42 U/L (10-49); AST 37 U/L (14-35); Albumin 4.1 g/dL (3.8-4.9); Albumin/Globulin Ratio 1.64 Ratio (1.60-3.17); Alkaline Phosphatase 63 U/L (41-126); BUN/Creat Ratio 17.45 Ratio (12.00-20.00); Blood Urea Nitrogen 19.2 mg/dL (9.0-27.0); Carbon Dioxide 21.4 mmol/L (21.6-31.8); Chloride 102 mmol/L (96-109); Globulin 2.5 g/dL (1.6-3.3); Glucose 153 mg/dL (70-110); Potassium 3.9 mmol/L (3.5-5.5); Sodium 138 mmol/L (135-145); Total Bilirubin <0.2 mg/dL (0.3-1.2); Total Protein 6.6 g/dL (6.2-8.2)
--- NOTE | 2025-02-02 11:44 | P.DS ---
Providers Date of admission: 02/01/2025 Expected date of discharge: 02/02/25 Attending physician: José Rodriguez Consults: 02/01/25 14:51 Consult Physician Routine Consulting Provider: Josh Christine Consult Reason/Comments: medical management s/p left total knee arthroplasty Do you want consulting provider notified?: Yes [facility] Course: Date of admission: 02/01/2025 Date of discharge: 02/02/2025 Admission diagnosis: Left knee osteoarthritis Discharge diagnosis: Same Attending physician: Dr. Rodriguez Surgical procedures: Direct anterior left total hip arthroplasty Brief history: Patient is a 64-year-old male with a history of progressive primary left knee osteoarthritis. At this point patient has failed conservative treatment measures and has opted to proceed with a elective left total knee arthroplasty. Hospital course: Details of patient's surgery can be found in operative report. Patient tolerated the procedure well and was subsequently transported to orthopedic floor. Patient's orthopeidc and medical care was provided daily. Patient had daily laboratory tests performed for evaluation of overall blood counts. Patient had daily physical therapy to include strengthening range of motion as well as education with walker ambulation. Patient was treated with Xarelto for their postoperative DVT prophylaxis during their inpatient stay. Patient was noted to have a relatively uneventful postoperative course. Patient reported satisfactory pain control with oral pain medications by postoperative day 1. Patient showed satisfactory progress with physical therapy. Patient moved steadily through the program and had no difficulty meeting the goals by postoperative day 1. Given patient's otherwise satisfactory course and having met physical therapy goals, plan is to discharge patient home with health services on postoperative day 1. Discharge condition/disposition: Patient will be discharged home with health services in stable condition. Discharge medications: Instructions are given on resumption of patient's normal daily medications per primary care recommendation, in addition patient will be prescribed Sheldon; resume aspirin 81 mg twice daily x 30 days at home for DVT prophylaxis.. Discharge instructions: 1. Wound care and infection precautions, keep incision dry and covered while showering, no lotions, creams, moisturizers. No soaking, tubs, pools, hottubs. Do not scrub over the incision. 2. Weight-bear as tolerated with walker / cane until follow-up. 3. Ice and elevate when necessary. Do not exceed 20 minutes per hour with ice pack. 4. Utilize compression sleeve until seen at first follow up appointment. 5. Visiting nursing care. 6. Home physical therapy including home CPM. 7. Pain meds and anticoagulants per prescription. 8. Pain medication has potential to cause constipation. Increase oral fluid and fiber intake. Contact primary care provider if you have not had a bowel movement within 48 hours after discharge 9. No anti-inflammatory medication until discussed at first post operative visit, this including Motrin, Aleve, Mobic, Diclofenac. 10. Follow up in office at 2 weeks postop with Kareem Olivier PA-C / Mt Workman PA-C 11. Follow up with your primary care doctor 7-10 days after discharge. 12. Contact [facility] with any questions, . Assessment: Left knee osteoarthritis Procedures: Left total knee arthroplasty Patient Condition at Discharge: Good Plan - Discharge Summary Discharge Rx Participant: Yes New Discharge Prescriptions: New HYDROcodone/APAP 7.5-325MG [Sheldon 7.5] 1 - 2 each PO Q6HR PRN #36 tab PRN Reason: Pain polyethylene glycoL 3350 [Miralax] 17 gm PO DAILY 30 Days #30 packet Continue Aspirin [Adult Low Dose Aspirin EC] 81 mg PO DAILY Omeprazole Magnesium [PriLOSEC OTC] 20 mg PO DAILY Multivitamins, Thera [Multivitamin (formulary)] 1 tab PO DAILY Levothyroxine Sodium [Synthroid] 25 mcg PO DAILY Losartan Potassium [Cozaar] 100 mg PO DAILY Magnesium Oxide [Mag-Ox] 400 mg PO DAILY 30 Days #30 tablet carvediloL 25 mg PO BID amLODIPine [Norvasc] 10 mg PO DAILY No Action Ibuprofen [Motrin] 800 mg PO Q6H PRN PRN Reason: Pain Discharge Medication List Aspirin [Adult Low Dose Aspirin EC] 81 mg PO DAILY 01/01/18 [History] Multivitamins, Thera [Multivitamin (formulary)] 1 tab PO DAILY 09/11/20 [History] Omeprazole Magnesium [PriLOSEC OTC] 20 mg PO DAILY 09/11/20 [History] Ibuprofen [Motrin] 800 mg PO Q6H PRN 08/04/23 [History] Levothyroxine Sodium [Synthroid] 25 mcg PO DAILY 08/04/23 [History] Losartan Potassium [Cozaar] 100 mg PO DAILY 08/04/23 [History] amLODIPine [Norvasc] 10 mg PO DAILY 08/04/23 [History] Magnesium Oxide [Mag-Ox] 400 mg PO DAILY 30 Days #30 tablet 08/18/24 [Rx] carvediloL 25 mg PO BID 01/26/25 [History] HYDROcodone/APAP 7.5-325MG [Sheldon 7.5] 1 - 2 each PO Q6HR PRN #36 tab 02/02/25 [Rx] polyethylene glycoL 3350 [Miralax] 17 gm PO DAILY 30 Days #30 packet 02/02/25 [Rx] Follow up Appointment(s)/Referral(s): Mt Workman, JOSE LUIS [PHYSICIAN SENIOR [employer]AC[employer] APPLICATIONS DEVELOPER] - 2 Weeks Nacho Rodriguez DO [Primary Care Provider] - 1 Week Patient Instructions/Handouts: Knee Replacement (GEN) Activity/Diet/Wound Care/Special Instructions: Orthopedic Discharge Instructions: 1. Wound care and infection precautions, keep incision dry and covered while showering, no lotions, creams, moisturizers. No soaking, pools, hot tubs. Do not scrub over incision. 2. Weight-bear as tolerated with walker / cane until follow-up. 3. Ice and elevate when necessary. Do not exceed 20 minutes per hour with ice pack. 4. Utilize compression sleeve until seen at first follow up appointment. 5. Pain meds and anticoagulants per prescription. 6. Pain medication has potential to cause constipation. Increase oral fluid and fiber intake. Contact primary care provider if you have not had a bowel movement within 48 hours after discharge. 7. No anti-inflammatory medication until discussed at first post operative visit, this including Motrin, Aleve, Mobic, Diclofenac. 8. Follow up in office at 2 weeks postop with Kareem Olivier PA-C / Mt Workman PA-C 9. Follow up with your primary care doctor 7-10 days after discharge. 10. Contact [facility] with any questions, . Keep incision clean, dry, intact. While showering, cover fusion tape with Saran wrap. Keep fusion tape on until follow-up appointment office in 2 weeks Discharge Disposition: HOME WITH HOME HEALTH SERVICES
--- NOTE | 2025-02-02 11:51 | P.PN ---
Subjective Progress Note Date: 02/02/25 Principal diagnosis: Left knee osteoarthritis Patient was seen at bedside this morning lying in the semirecumbent edition with dressing over left knee. On-Q ball is in place. Patient says he just finished working with therapy and walked out in the hallway and up and down steps. Patient says he did do well. Patient says he does have a walker for home. Patient says he has urinated several times in surgery yesterday without issue. Patient says he has been passing gas, however, no bowel movement yet. Patient denies any other issues at this time. Objective - Vital Signs Vital signs: Vital Signs Temp 97.9 F 02/02/25 06:55 Pulse 82 02/02/25 06:55 Resp 18 02/02/25 06:55 BP 137/74 02/02/25 06:55 Pulse Ox 95 02/02/25 06:55 FiO2 Intake & Output 02/01/25 02/02/25 02/02/25 18:59 06:59 18:59 Intake Total 1501 240 Output Total 50 1000 Balance 1451 -1000 240 Weight 93.8 kg Intake: IV 1501 Oral 240 Output: Urine 1000 Estimated Blood Loss 50 - Exam Left knee: Incision is clean, dry, and intact. The exofin fusion tape is in good condition. There is minimal soft tissue swelling and ecchymosis surrounding the medial and lateral aspects of the incision. Calf is soft, no tenderness with palpation. Plantar flexion, dorsiflexion, EHL, FHL are intact. Sensory exam to light touch throughout the extremity is intact, dorsal pedis pulses 2+. - Labs CBC & Chem 7: 02/02/25 03:11 02/02/25 03:11 Labs: Abnormal Lab Results - Last 24 Hours (Table) 02/01/25 02/01/25 02/02/25 Range/Units 20:23 20:23 03:11 RBC 3.82 L 3.54 L (4.40-5.60) 10*6/uL Hgb 12.7 L 11.4 L (13.0-17.0) g/dL Hct 35.7 L 33.2 L (39.6-50.0) % MCH 33.2 H 32.2 H (27.0-32.0) pg Immature Gran # 0.05 H (0.00-0.04) X 10*3/uL Neutrophils # 8.76 H (1.80-7.70) 10*3/uL Lymphocytes # 0.70 L 0.87 L (0.90-5.00) 10*3/uL Eosinophils # 0.00 L 0 L (0.04-0.35) 10*3/uL Carbon Dioxide 19 L (22-30) mmol/L Anion Gap (4.00-12.00) mmol/L Glucose 192 H (74-99) mg/dL Total Bilirubin (0.3-1.2) mg/dL AST (14-35) U/L 02/02/ Range/Units 03:11 RBC (4.40-5.60) 10*6/uL Hgb (13.0-17.0) g/dL Hct (39.6-50.0) % MCH (27.0-32.0) pg Immature Gran # (0.00-0.04) X 10*3/uL Neutrophils # (1.80-7.70) 10*3/uL Lymphocytes # (0.90-5.00) 10*3/uL Eosinophils # (0.04-0.35) 10*3/uL Carbon Dioxide 21.4 L (22-30) mmol/L Anion Gap 14.60 H (4.00-12.00) mmol/L Glucose 153 H (74-99) mg/dL Total Bilirubin <0.2 L (0.3-1.2) mg/dL AST 37 H (14-35) U/L Assessment and Plan Assessment: 1. Left knee osteoarthritis -Postop day 1 status post left total knee arthroplasty Plan: 1. Left knee osteoarthritis -left total knee arthroplasty from yesterday, , 02/01/2025. Patient stable bedside is worried. Patient did do well with therapy this morning. Patient does have a walker for home. Discharge home today with health services. 2. Appreciate medical management 3. Pain management -[place] 4. DVT prophylaxis -Xarelto in hospital. To take aspirin at home for DVT prophylaxis 5. GI prophylaxis -senna 6. PT/OT -weightbearing as tolerated with walker 7. Encourage incentive spirometer use 8. Discharge planning -home today with health services Time with Patient: Less than 30
--- NOTE | 2025-02-02 11:56 | P.PN ---
Subjective Progress Note Date: 02/02/25 Hospital course: Patient is a pleasant 64-year-old male with a past medical history of CAD, hypertension, hyperlipidemia, aortic aneurysm, pulmonary nodule, hypothyroidism, GERD, COPD, and osteoarthritis. He is currently admitted under orthopedic surgery team status post elective left total knee arthroplasty and removal of hardware of left proximal tibia. Surgical procedure was completed by Dr. Vidal secondary to left knee severe tricompartmental osteoarthrosis and left knee ret ained hardware of proximal femur. We were consulted for medical management throughout hospitalization. Physical exam: Patient seen and fully evaluated at bedside this morning. He reports doing wel l. He reports mild to moderate postoperative pain at this time stating pain was previously 5-6 out of 10 but he just completed working with physical therapy and now pain is up to 8 out of 10 at this time. He reports he did well with physical therapy and walked up and down the woods and even did the stairs without difficulties. Patient reports feeling ready to go home. He denies having any headache, lightheadedness, dizziness, chest pain, palpitations, or shortness of breath. Patient denies having any postoperative nausea or vomiting and reports that he is tolerating oral intake and has been urinating well. Vital signs reviewed and stable. General: Nontoxic, no distress and appears stated age. Derm: Skin warm and dry, normal coloration for ethnicity. Head: Atraumatic, normocephalic and symmetric. Eyes: EOM's intact, no lid lag, and anicteric sclera Mouth: no lip lesions, mucus membranes moist Cardiovascular: regular rate and rhythm with normal S1S2, no murmur, positive posterior tibial pulses bilaterally, and cap refill < 2 seconds. Lungs: Respirations even, regular, and unlabored on room air. Lungs CTA bilaterally, no rhonchi, no rales, no wheezing, and no accessory muscle usage. Abdominal: soft, nontender to palpation, no guarding, no appreciable organomegaly Ext: No gross muscle atrophy, no edema, no contractures. Movement and sensation intact. Postoperative dressing/Chevy wrap in place to left knee. Neuro: Speech clear, face symmetrical and CN II-XII grossly intact with no noted focal neuro deficits Psych: Alert and oriented to person, place, time, and situation. Appropriate and pleasant affect. Assessment and Plan of Care: Status post right total knee arthroplasty and removal of hardware of left proximal tibia -Management per primary admitting orthopedic surgery team including DVT prophylaxis,pain management, wound/dressing management, weightbearing, and PT/OT. - Patient currently on DVT prophylaxis with Xarelto 10 mg daily. Hypertension -Monitor vital signs and continue antihypertensive medication regimen with amlodipine 10 mg daily, losartan 100 mg daily and carvedilol 25 mg twice daily. Hypothyroidism -Continue daily medication regimen with levothyroxine 25 mcg daily. History of aortic aneurysm -Patient follows with Dr. Chavez for monitoring/surveillance. History of pulmonary nodule -Patient to continue to follow with [facility] for monitoring/surveillance. Data and imaging reviewed: - Vital signs reviewed. Blood pressure 137/74, heart rate 82, respiratory rate 18, temp 97.9 F, and SpO2 of 95% on room air. - Morning labs reviewed. Postoperative labs revealing mild postop anemia with hemoglobin of 11.4. BMP showing hypocarbia with bicarb of 21.4, and elevated anion gap of 14.60. Blood glucose was 153. Liver profile showing elevated AST of 37 otherwise normal findings. Patient is medically optimized for discharge once cleared by primary admitting orthopedic surgery team. Thank you for allowing us to participate in the care of this pleasant patient. Do not hesitate to contact us with questions. Someone can be reached from the [facility] hospitalist group all hours of the day at [phone] or via [employer]. Patient was seen independently by Nurse Pracitioner. This document was prepared using oDesk dictation software. Please allow for errors in manager investigations, while rare they do occur. Torres Cobos NP rendered care for this patient independently, reviewed the findings and plan as documented in the note above and agree with plan. I did not physically speak with or examine the patient on this date. Objective - Vital Signs Vital signs: Vital Signs Temp 97.9 F 02/02/25 06:55 Pulse 82 02/02/25 06:55 Resp 18 02/02/25 06:55 BP 137/74 02/02/25 06:55 Pulse Ox 95 02/02/25 06:55 FiO2 Intake & Output 02/01/25 02/02/25 02/02/25 18:59 06:59 18:59 Intake Total 1501 240 Output Total 50 1000 Balance 1451 -1000 240 Weight 93.8 kg Intake: IV 1501 Oral 240 Output: Urine 1000 Estimated Blood Loss 50 - Labs CBC & Chem 7: 02/02/25 03:11 02/02/25 03:11 Labs: Abnormal Lab Results - Last 24 Hours (Table) 02/01/25 02/01/25 02/02/25 Range/Units 20:23 20:23 03:11 RBC 3.82 L 3.54 L (4.40-5.60) 10*6/uL Hgb 12.7 L 11.4 L (13.0-17.0) g/dL Hct 35.7 L 33.2 L (39.6-50.0) % MCH 33.2 H 32.2 H (27.0-32.0) pg Immature Gran # 0.05 H (0.00-0.04) X 10*3/uL Neutrophils # 8.76 H (1.80-7.70) 10*3/uL Lymphocytes # 0.70 L 0.87 L (0.90-5.00) 10*3/uL Eosinophils # 0.00 L 0 L (0.04-0.35) 10*3/uL Carbon Dioxide 19 L (22-30) mmol/L Anion Gap (4.00-12.00) mmol/L Glucose 192 H (74-99) mg/dL Total Bilirubin (0.3-1.2) mg/dL AST (14-35) U/L 02/02/25 Range/Units 03:11 RBC (4.40-5.60) 10*6/uL Hgb (13.0-17.0) g/dL Hct (39.6-50.0) % MCH (27.0-32.0) pg Immature Gran # (0.00-0.04) X 10*3/uL Neutrophils # (1.80-7.70) 10*3/uL Lymphocytes # (0.90-5.00) 10*3/uL Eosinophils # (0.04-0.35) 10*3/uL Carbon Dioxide 21.4 L (22-30) mmol/L Anion Gap 14.60 H (4.00-12.00) mmol/L Glucose 153 H (74-99) mg/dL Total Bilirubin <0.2 L (0.3-1.2) mg/dL AST 37 H (14-35) U/L
== END 2025-02-02 13:56 | disposition home health service (06) ==
LOC: OR 11:02 → 4SSUR 16:23 → OR 02-02 13:56
PROVIDERS: ATTEND Orthopaedic Surgery
DX: M17.12 Unilateral primary osteoarthritis, left knee (principal); I25.10 Atherosclerotic heart disease of native coronary artery without angina pectoris; E78.5 Hyperlipidemia, unspecified; E03.9 Hypothyroidism, unspecified; I10 Essential (primary) hypertension; J44.9 Chronic obstructive pulmonary disease, unspecified; K21.9 Gastro-esophageal reflux disease without esophagitis; Z96.641 Presence of right artificial hip joint; Z98.890 Other specified postprocedural states; Z96.653 Presence of artificial knee joint, bilateral; Z87.891 Personal history of nicotine dependence; Z80.1 Family history of malignant neoplasm of trachea, bronchus and lung; Z79.82 Long term (current) use of aspirin; Z79.01 Long term (current) use of anticoagulants; Z79.890 Hormone replacement therapy; Z79.899 Other long term (current) drug therapy
CPT/HCPCS: 80053; 84443; 85025; 73560; 27447; 28122; 64473; 64448; J2250; J1171 ×2; J1100; J0690 ×2; J2405; J2795; 64474